=== PATIENT | male | born 1935 | race Caucasian/White ===

== ENCOUNTER → 2016-10-17 | Outpatient (CLI) | payer BC ==
[2016-10-17 10:48] LABS: BASO ABS # 0.05 K/uL (0-0.2); COMPLETE YES; EOS % 2.5 %; IG% 0.2 %; LYMPH % 34.6 %; LYMPH ABS # 1.79 K/uL (1.2-3.4); MEAN CELL VOLUME 90.7 fL (80-100); MEAN CORPUSCULAR HEMOGLOBIN 31.9 pg (25-34); MEAN CORPUSCULAR HGB CONC 35.1 g/dl (32-36); MEAN PLATELET VOLUME 11.7 fL (7.4-10.4); NEUT % 48.7 %; PLATELET COUNT 209 K/uL (130-400); RED BLOOD COUNT 4.96 M/uL (4.7-6.1); WHITE BLOOD COUNT 5.17 K/uL (4.8-10.8)
[2016-10-17 10:55] LABS: URINE APPEARANCE CLEAR (CLEAR); URINE BILIRUBIN NEG (NEG); URINE COLOR YELLOW; URINE EPITHELIAL CELL AUTO 0-5 /lpf (0-5); URINE NITRITE NEG (NEG); URINE SPECIFIC GRAVITY 1.009 (1.000-1.030); UROBILINOGEN NEG (NEG)
[2016-10-17 11:10] LABS: ESTIMATED AVERAGE GLUCOSE 120 mg/dl; HA1C FLAG Normal (Normal)
[2016-10-17 11:13] LABS: MANUAL MICROSCOPIC REQUIRED? NO; REVIEW REQ? NO
[2016-10-17 11:35] LABS: ALT/SGPT 32 U/L (12-78); AST/SGOT 22 U/L (15-37); BLOOD UREA NITROGEN 16 mg/dl (7-18); BUN/CREATININE RATIO 13.2 (10-20); CARBON DIOXIDE 30 mmol/L (21-32); CHLORIDE 96 mmol/L (98-107); CHOLESTEROL 154 mg/dl (0-200); CHOLESTEROL/HDL RATIO 2.3; GLUCOSE 111 mg/dl (70-99); HDL CHOLESTEROL 67 mg/dl; POTASSIUM 3.4 mmol/L (3.5-5.1); SODIUM 135 mmol/L (136-145)
[2016-10-17 11:46] LABS: LDL CHOLESTEROL CALCULATED 66 mg/dl; TRIGLYCERIDES 107 mg/dl (0-150); VERY LOW DENSITY LIPOPROT CALC 21 mg/dl
--- NOTE | 2016-10-24 07:13 | CODING QUERY MEDICAL NECESSITY ---
CQSUPPORTING DIAGNOSIS NEEDED A supporting diagnosis is required for the test/procedure performed on this patient in order for us to be reimbursed by the patient's insurance. Please provide a supporting diagnosis for the following test/procedure listed below next to the test name along with your signature. *If there is no additional diagnosis for this patient that would support the following test/procedure please document that below next to the test/procedure. Test(s)/Procedure(s) that require a supporting diagnosis: DOS 10/17/16 GLYCATED HEMOGLOBIN TEST Provider Signature: Date: Thank you [facility] Once completed, please kindly fax back to [phone] For questions please call [phone]
== END | disposition home or self-care (01) ==
LOC: C.LAB1850 09:33
PROVIDERS: ATTEND Internal Medicine
DX: E78.00 Pure hypercholesterolemia, unspecified (principal); R73.9 Hyperglycemia, unspecified

== ENCOUNTER → 2017-04-17 | Outpatient (CLI) | payer BC ==
[2017-04-17 09:48] LABS: BASO % 1.4 %; BASO ABS # 0.07 K/uL (0-0.2); COMPLETE YES; EOS % 3.1 %; HEMATOCRIT 46.1 % (42-52); LYMPH % 34.4 %; LYMPH ABS # 1.67 K/uL (1.2-3.4); MEAN CORPUSCULAR HEMOGLOBIN 31.1 pg (25-34); MEAN CORPUSCULAR HGB CONC 33.8 g/dl (32-36); MEAN PLATELET VOLUME 11.7 fL (7.4-10.4); MONO % 12.3 %; NEUT % 48.8 %; PLATELET COUNT 206 K/uL (130-400); RED BLOOD COUNT 5.01 M/uL (4.7-6.1); WHITE BLOOD COUNT 4.86 K/uL (4.8-10.8)
[2017-04-17 10:00] LABS: URINE APPEARANCE CLEAR (CLEAR); URINE BILIRUBIN NEG (NEG); URINE COLOR YELLOW; URINE EPITHELIAL CELL AUTO 0-5 /lpf (0-5); URINE NITRITE NEG (NEG); URINE PH 7.5 (4.5-7.5); URINE SPECIFIC GRAVITY 1.014 (1.000-1.030); UROBILINOGEN NEG (NEG)
[2017-04-17 10:06] LABS: MANUAL MICROSCOPIC REQUIRED? NO; REVIEW REQ? NO
[2017-04-17 10:10] LABS: ESTIMATED AVERAGE GLUCOSE 126 mg/dl; HA1C FLAG Normal (Normal)
[2017-04-17 11:16] LABS: ALT/SGPT 30 U/L (12-78); AST/SGOT 24 U/L (15-37); BLOOD UREA NITROGEN 20 mg/dl (7-18); BUN/CREATININE RATIO 18.1 (10-20); CALCIUM 9.1 mg/dl (8.5-10.1); CARBON DIOXIDE 31 mmol/L (21-32); CHLORIDE 97 mmol/L (98-107); CHOLESTEROL 150 mg/dl (0-200); GLUCOSE 116 mg/dl (70-99); POTASSIUM 3.5 mmol/L (3.5-5.1); SODIUM 133 mmol/L (136-145); TRIGLYCERIDES 144 mg/dl (0-150); VERY LOW DENSITY LIPOPROT CALC 29 mg/dl
[2017-04-17 11:26] LABS: CHOLESTEROL/HDL RATIO 2.6; HDL CHOLESTEROL 58 mg/dl; LDL CHOLESTEROL CALCULATED 63 mg/dl
--- NOTE | 2017-04-24 11:33 | CODING QUERY MEDICAL NECESSITY ---
SUPPORTING DIAGNOSIS NEEDED A supporting diagnosis is required for the test/procedure performed on this patient in order for us to be reimbursed by the patient's insurance. Please provide a supporting diagnosis for the following test/procedure listed below next to the test name along with your signature. *If there is no additional diagnosis for this patient that would support the following test/procedure please document that below next to the test/procedure. Test(s)/Procedure(s) that require a supporting diagnosis: * HEMOGLOBIN A1C DIAGNOSIS: Provider Signature: Date: Thank you Merly Guardado [employer] Once completed, please kindly fax back to [phone] For questions please call [phone]
== END | disposition home or self-care (01) ==
LOC: C.LAB1850 08:36
PROVIDERS: ATTEND Internal Medicine
DX: E78.00 Pure hypercholesterolemia, unspecified (principal); R73.9 Hyperglycemia, unspecified

== ENCOUNTER → 2017-05-11 | Outpatient (CLI) | payer BC ==
[~2017-05-11] MED LIST: GADAVIST IV PRN
--- NOTE | 2017-05-11 11:29 | DIAGNOSTIC IMAGING REPORT ---
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 COMPARISON STUDY: No previous studies for comparison. TECHNIQUE: Utilizing a 1.5 Mariam magnet and dedicated coil, multiplanar, multi echo imaging of the brain was performed pre and postcontrast administration with thin cut imaging through the internal auditory canals. Injection of 8.5 cc of Gadavist IV was uneventful. FINDINGS: There are no areas of restricted diffusion. A small focus of T2 shinethrough is noted within the posterior right frontal lobe on axial image 17. Brain volume is normal for age. Ventricular system is normal. Basilar cisterns are patent. There are no extra-axial collections. Flow-voids for the major intracranial vessels are present. There is no intracranial mass or pathologic enhancement. No abnormalities are identified within the internal auditory canals. There is no fluid within the mastoid air cells. No cerebellopontine angle mass is present. A 5 mm T2 hypertense focus within the posterior right frontal lobe could reflect small vessel disease or old lacunar infarct. A few small white matter T2 hypertense foci are noted. Calvarial signal is normal. Orbits and sinuses are unremarkable. IMPRESSION: 1. No acute intracranial findings. 2. No abnormalities within the internal auditory canals. 3. No intracranial mass or pathologic enhancement. Electronically signed by: Dante Denis M.D. 05/11/2017 11:28 AM Dictated Date/Time: 05/11/2017 11:18 AM
== END | disposition home or self-care (01) ==
LOC: C.MRIBC 10:01
PROVIDERS: ATTEND Physician Assistant
DX: H90.42 Sensorineural hearing loss, unilateral, left ear, with unrestricted hearing on the contralateral side (principal)

== ENCOUNTER → 2017-10-20 | Outpatient (CLI) | payer BC ==
[2017-10-20 14:36] LABS: INFLUENZA B ANTIGEN Neg for Influ B (NEG)
== END | disposition home or self-care (01) ==
LOC: C.LAB1850 11:10
PROVIDERS: ATTEND Internal Medicine
DX: R50.9 Fever, unspecified (principal)

== ENCOUNTER → 2017-10-30 | Outpatient (CLI) | payer BC ==
[2017-10-30 09:33] LABS: BASO % 0.9 %; BASO ABS # 0.05 K/uL (0-0.2); EOS % 2.8 %; EOS ABS # 0.15 K/uL (0-0.5); HEMATOCRIT 44.6 % (42-52); HEMOGLOBIN 15.8 g/dL (14.0-18.0); LYMPH % 33.6 %; LYMPH ABS # 1.82 K/uL (1.2-3.4); MEAN CELL VOLUME 90.1 fL (80-100); MEAN CORPUSCULAR HEMOGLOBIN 31.9 pg (25-34); MEAN CORPUSCULAR HGB CONC 35.4 g/dl (32-36); MEAN PLATELET VOLUME 10.6 fL (7.4-10.4); MONO % 10.3 %; MONO ABS # 0.56 K/uL (0.11-0.59); NEUT % 52.4 %; NEUT ABS # 2.84 K/uL (1.4-6.5); PLATELET COUNT 206 K/uL (130-400); RED CELL DISTRIBUTION WIDTH CV 13.8 % (11.5-14.5); RED CELL DISTRIBUTION WIDTH SD 45.3 fL (36.4-46.3); WHITE BLOOD COUNT 5.42 K/uL (4.8-10.8)
[2017-10-30 09:53] LABS: HEMOGLOBIN A1C 6.1 % (4.5-5.6)
[2017-10-30 10:00] LABS: ALT/SGPT 27 U/L (12-78); AST/SGOT 20 U/L (15-37); BLOOD UREA NITROGEN 24 mg/dl (7-18); CARBON DIOXIDE 30 mmol/L (21-32); CHOLESTEROL 153 mg/dl (0-200); GLUCOSE 114 mg/dl (70-99); POTASSIUM 3.8 mmol/L (3.5-5.1); SODIUM 129 mmol/L (136-145)
[2017-10-30 10:10] LABS: LDL CHOLESTEROL CALCULATED 69 mg/dl
== END | disposition home or self-care (01) ==
LOC: C.LAB1850 08:12
PROVIDERS: ATTEND Internal Medicine
DX: E78.00 Pure hypercholesterolemia, unspecified (principal)

== ENCOUNTER 2025-02-08 05:53 | Inpatient (IN) ==
[2025-02-08] MEDS: SODIUM CHLORIDE 0.9% 1,000 ML IV ONE (07:20)
[2025-02-08] MEDS: ONDANSETRON INJ 2 MG/ML 2 ML VIAL IV STA (07:20)
[2025-02-08] MEDS: ACETAMINOPHEN 1,000 MG/100 ML VIAL IV STA (07:20)
[2025-02-08] MEDS: KETOROLAC TROMETHAMINE 15 MG/ML VIAL IV ONE (07:21)
[2025-02-08 07:22] LABS: Hematocrit (blood only) 44.6 % (42.0-52.0); Hemoglobin 16.0 g/dl (14.0-18.0); Immature Granulocytes # (auto) 0.03 K/uL (0.01-0.20); Immature Granulocytes % (auto) 0.3 %; Mean Corpuscular Hemoglobin 31.3 pg (25.0-34.0); Mean Corpuscular Volume 87.3 fL (80.0-100.0); Platelet Count 185 K/uL (130-400); RDW Standard Deviation 44.4 fL (36.4-46.3); Red Blood Count 5.11 M/uL (4.70-6.10); White Blood Count 8.85 K/ul (4.8-10.8)
--- NOTE | 2025-02-08 07:35 | Emergency Department Note ---
Impression & Plan Diffuse abdominal pain, Acute urinary retention, Pancreatitis, Pancreas cyst, Acute hyponatremia, Hypokalemia ED Provider Note NAME: IRAM LEDEZMA AGE: 89 SEX: M : 1935 ARRIVES VIA: Walk-In INFORMANT: [Patient] ED PROVIDER(S): [Stevan Arora MD] CHIEF COMPLAINT: Back pain HISTORY OF PRESENT ILLNESS: Patient is an 89-year-old male who presents to the ER with abdominal pain and lower back pain. He feels bloated. His last bowel movement was 3 days ago. He had tried some Metamucil at home without relief. There has been no urinary complaint. He has noticed some nausea but he has not had vomiting. No fever, no cough or cold or congestion. PMHx/PSHx/Social Hx: See Below PHYSICAL EXAM: GENERAL: Patient is in no acute distress. HEENT: No acute trauma, normocephalic atraumatic, mucous membranes moist, no nasal congestion. NECK: No stridor, no adenopathy, no meningismus, trachea is midline. LUNGS: Clear to auscultation bilaterally, no wheeze, no rhonchi, breath sounds equal. HEART: Without murmurs gallops or rubs, regular rate and rhythm. ABDOMEN: Soft, nontender, no peritonitis. Mild distention noted. EXTREMITIES: No cyanosis, full range of motion of all the joints without pain or difficulty. Mild bilateral pedal edema. NEUROLOGIC: Oriented x 3, no acute motor or sensory deficits, no focal weakness. SKIN: No jaundice, no diaphoresis. DIFFERENTIAL DIAGNOSIS: Constipation, bowel obstruction, UTI, urinary retention, dehydration, among others. EMERGENCY DEPARTMENT PROCEDURES: MEDICAL DECISION MAKING: There is no leukocytosis or concerning anemia. There is a normal platelet count. No bandemia. Sodium is low, the value today is below his typical baseline. The patient had a hypokalemia on initial testing. There was no renal failure. No worrisome liver enzyme elevation. Lipase was slightly elevated consistent with potential early pancreatitis. Urinalysis showed ketones, no infection. Chest x-ray did not show pneumonia or CHF. ECG showed a sinus rhythm, there was no acute ischemia. Abdominal and pelvis CT showed an enlarged bladder as well as a pancreatic cyst and some pancreatic inflammation. There was no bowel obstruction, no diverticulitis. The bladder was quite enlarged. Lumbar spine CT did not show any fracture. The patient was unable to void a significant amount of urine at bedside. A bladder scan was done and he had 1300 cc, significant retention. A Patel catheter was placed with significant urine output. The patient felt improved. The patient received IV saline for hydration, 1.5 L. He was given IV potassium. He received IV Zofran. He was given IV Tylenol. He was given IV Toradol. The patient is feeling improved. I do think he is going to require a hospital stay for further workup and care. His electrolytes need addressed, a workup needs performed on the pancreatic cyst found, he would benefit from a urology consult given his urinary retention. I spoke with the patient and case management, the on-call hospitalist was consulted. Of note, the patient was found to be hypertensive, he had not taken his typical dose of the irbesartan. He did have this medication with him and he was instructed to take his typical oral dose while here in the ED. Prior/Outside records/notes reviewed: None ECG per my interpretation: Indication was abdominal pain. The ECG shows a sinus bradycardia with a rate of 58. There is LVH present. There is no acute ST elevation, no PVCs. There is some nonspecific ST change. QTc is 477. Continuous Cardiac Monitoring per my interpretation: An order was placed for continuous cardiac monitoring. The monitor shows a rate of 76 with normal sinus rhythm. Imaging/x-ray results per my interpretation: Chest x-ray shows some chronic changes, there was no pneumonia or CHF. Chronic Medical/Social conditions affecting care: Advanced age. Care/Management discussed with: Case management, the on-call hospitalist. 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, bilateral Macular degeneration Neck stiffness Lipoma Hyperglycemia (Chronic) Left asymmetrical SNHL Gait instability Health care maintenance Hyponatremia GERD (gastroesophageal reflux disease) Abnormal TSH Grieving SNHL (sensorineural hearing loss) Diverticulosis (Chronic) Enlarged prostate with lower urinary tract symptoms (LUTS) (Chronic) Hearing loss (Chronic) Hypercholesterolemia (Chronic) Hypertension (Chronic) Peripheral neuropathy (Chronic) Subjective tinnitus (Chronic) Medical History Blister of groin with infection GERD (gastroesophageal reflux disease) Subconjunctival hematoma right eye gets injections every 8 weeks Dysphagia History of colon cancer hx of 20 yrs ago > removed during colonoscopy Left SNHL Vertigo Epistaxis resolved Deviated septum no surgery Surgical History History of nasal cauterization H/O melanoma excision History of tonsillectomy and adenoidectomy History of eye surgery History of colonoscopy History of hemorrhoidectomy Family History Father Hearing loss Hypertension Heart disease Myocardial infarction Mother Cancer Sister COPD (chronic obstructive pulmonary disease) Other Melanoma Denies family history of Ovarian cancer Prostate cancer Breast cancer Colorectal cancer Social History Smoking Status: Former smoker Tobacco Type: Cigarettes Age Started Using Tobacco: 17; Age Quit Using Tobacco: 27; packs per day: 1; Second Hand Exposure: No; Do You Dip or Chew Tobacco: No; Hx Alcohol Use: No (no alcohol since January 11) Hx Substance Use: No Preferred Language: Armenian Communication Ability: Effective Visual Impairment: No Limitations Hearing Ability: Normal Tree Doctor Required: No Beliefs That Will Affect Care: None marital status: / Current Living Situation: Alone current occupational status: retired Feels Safe at Home: Yes Childhood Exposure to Second-Hand Smoke: Yes Diet: vegan and other Diet Comment: eats fish, cheese, eggs caffeine: Yes (1 tea 2 coffees daily) Dental Care, Regularly: Yes Physical Activity Frequency: Daily Seatbelt Use: always Sunscreen Use: Yes Do you think of yourself as: straight/heterosexual Gender Identity: Male Assistive Devices: Glasses Allergies Allergies Allergy/AdvReac Type Severity Reaction Status Date / Time No Known Drug Allergies Allergy Verified 01/17/25 10:17 Home Meds Home Medications Medication Instructions Recorded Confirmed loratadine 10 mg tablet 0 mg PO QAM 03/15/19 02/08/25 vitamins A,C,[id number] 4,296 0 cap PO BID 10/25/24 02/08/25 mcg-226 mg-90 mg capsule (PreserVision AREDS) Centrum Silver Men 1 tab PO DAILY 02/08/25 02/08/25 Osteo Bi-Flex 2 cap PO QAM 02/08/25 02/08/25 hydrochlorothiazide 12.5 mg capsule 0 mg PO QAM 02/08/25 02/08/25 irbesartan 300 mg tablet 0 mg PO QAM 02/08/25 02/08/25 mecobalamin (vitamin B12) 0 mg PO DAILY PRN Other 02/08/25 02/08/25 Previous Rx's Medication Instructions Recorded atorvastatin 20 mg tablet 20 mg PO HS #90 tabs 04/16/24 levothyroxine 50 mcg tablet 50 mcg PO DAILY #90 tabs 06/21/24 sildenafil (pulm.hypertension) 20 See Rx Instructions PO ONCE PRN 10/25/24 mg tablet sexual activity #30 tabs pantoprazole 20 mg tablet,delayed 20 mg PO QAM #90 tabs 12/24/24 release potassium chloride 10 mEq 10 meq PO DAILY #90 caps 12/24/24 capsule,extended release Results & Data (ED) Vital Signs Vital Signs - 24 hr 02/08/25 05:58 02/08/25 06:36 02/08/25 06:39 Temperature 37 C Temperature Source Oral Pulse Rate 80 64 Pulse Rate [Finger] 69 Pulse Rate from SpO2 Sensor 63 Respiratory Rate 18 13 Blood Pressure 156/75 H Blood Pressure [Right Arm] 173/115 H Blood Pressure Mean 102 Blood Pressure Mean [Right Arm] 134 Pulse Oximetry 97 97 96 Oxygen Delivery Method Room Air Room Air Sepsis Recent Fever Within 48 Hours No Sepsis New/Unexplained Change in Mental Status No Sepsis Action Taken by Nursing No Action Required 02/08/25 06:40 02/08/25 06:49 02/08/25 06:51 Temperature Temperature Source Pulse Rate 76 58 L Pulse Rate [Finger] Pulse Rate from SpO2 Sensor 47 L Respiratory Rate 17 Blood Pressure 116/61 Blood Pressure [Right Arm] Blood Pressure Mean 69 Blood Pressure Mean [Right Arm] Pulse Oximetry 94 Oxygen Delivery Method Sepsis Recent Fever Within 48 Hours Sepsis New/Unexplained Change in Mental Status Sepsis Action Taken by Nursing 02/08/25 06:57 02/08/25 07:00 02/08/25 07:02 Temperature Temperature Source Pulse Rate 60 Pulse Rate [Finger] Pulse Rate from SpO2 Sensor 60 Respiratory Rate 13 Blood Pressure 133/91 150/95 H Blood Pressure [Right Arm] Blood Pressure Mean 106 113 Blood Pressure Mean [Right Arm] Pulse Oximetry 93 Oxygen Delivery Method Sepsis Recent Fever Within 48 Hours Sepsis New/Unexplained Change in Mental Status Sepsis Action Taken by Nursing 02/08/25 07:44 02/08/25 08:14 02/08/25 08:17 Temperature Temperature Source Pulse Rate 56 L 61 Pulse Rate [Finger] Pulse Rate from SpO2 Sensor 57 L 62 Respiratory Rate 15 15 Blood Pressure 188/99 H Blood Pressure [Right Arm] Blood Pressure Mean 138 Blood Pressure Mean [Right Arm] Pulse Oximetry 100 97 Oxygen Delivery Method Sepsis Recent Fever Within 48 Hours Sepsis New/Unexplained Change in Mental Status Sepsis Action Taken by Nursing 02/08/25 08:59 02/08/25 09:01 02/08/25 09:02 Temperature Temperature Source Pulse Rate 60 61 Pulse Rate [Finger] Pulse Rate from SpO2 Sensor 52 L 60 Respiratory Rate 12 12 Blood Pressure 221/113 H Blood Pressure [Right Arm] Blood Pressure Mean 145 Blood Pressure Mean [Right Arm] Pulse Oximetry 99 99 Oxygen Delivery Method Sepsis Recent Fever Within 48 Hours Sepsis New/Unexplained Change in Mental Status Sepsis Action Taken by Nursing 02/08/25 09:29 02/08/25 09:31 02/08/25 09:38 Temperature Temperature Source Pulse Rate 57 L 55 L Pulse Rate [Finger] Pulse Rate from SpO2 Sensor 58 L 55 L Respiratory Rate 22 14 Blood Pressure 193/111 H Blood Pressure [Right Arm] Blood Pressure Mean 138 Blood Pressure Mean [Right Arm] Pulse Oximetry 99 96 Oxygen Delivery Method Sepsis Recent Fever Within 48 Hours Sepsis New/Unexplained Change in Mental Status Sepsis Action Taken by Nursing 02/08/25 09:53 02/08/25 10:00 02/08/25 10:08 Temperature Temperature Source Pulse Rate 56 L 60 Pulse Rate [Finger] Pulse Rate from SpO2 Sensor 56 L Respiratory Rate 14 12 Blood Pressure 178/110 H Blood Pressure [Right Arm] Blood Pressure Mean 144 Blood Pressure Mean [Right Arm] Pulse Oximetry 97 Oxygen Delivery Method Sepsis Recent Fever Within 48 Hours Sepsis New/Unexplained Change in Mental Status Sepsis Action Taken by Nursing 02/08/25 10:26 02/08/25 10:31 02/08/25 10:35 Temperature Temperature Source Pulse Rate 57 L 56 L Pulse Rate [Finger] Pulse Rate from SpO2 Sensor 57 L 56 L Respiratory Rate 15 13 Blood Pressure 181/106 H Blood Pressure [Right Arm] Blood Pressure Mean 117 Blood Pressure Mean [Right Arm] Pulse Oximetry 97 95 Oxygen Delivery Method Sepsis Recent Fever Within 48 Hours Sepsis New/Unexplained Change in Mental Status Sepsis Action Taken by Nursing 02/08/25 11:00 02/08/25 11:30 02/08/25 11:49 Temperature Temperature Source Pulse Rate 59 L 60 58 L Pulse Rate [Finger] Pulse Rate from SpO2 Sensor Respiratory Rate 14 14 Blood Pressure 157/103 H 157/104 H Blood Pressure [Right Arm] Blood Pressure Mean 111 120 Blood Pressure Mean [Right Arm] Pulse Oximetry 95 96 Oxygen Delivery Method Sepsis Recent Fever Within 48 Hours Sepsis New/Unexplained Change in Mental Status Sepsis Action Taken by Nursing 02/08/25 12:00 02/08/25 13:00 02/08/25 13:06 Temperature Temperature Source Pulse Rate 57 L 59 L 58 L Pulse Rate [Finger] Pulse Rate from SpO2 Sensor 59 L Respiratory Rate 12 14 14 Blood Pressure 199/105 H 166/90 H Blood Pressure [Right Arm] Blood Pressure Mean 119 149 Blood Pressure Mean [Right Arm] Pulse Oximetry 99 98 97 Oxygen Delivery Method Sepsis Recent Fever Within 48 Hours Sepsis New/Unexplained Change in Mental Status Sepsis Action Taken by Nursing 02/08/25 13:30 02/08/25 14:30 Temperature Temperature Source Pulse Rate 60 61 Pulse Rate [Finger] Pulse Rate from SpO2 Sensor Respiratory Rate 12 15 Blood Pressure 166/105 H 154/103 H Blood Pressure [Right Arm] Blood Pressure Mean 116 122 Blood Pressure Mean [Right Arm] Pulse Oximetry 97 95 Oxygen Delivery Method Sepsis Recent Fever Within 48 Hours Sepsis New/Unexplained Change in Mental Status Sepsis Action Taken by Group Home Medications Current Medication List: was personally reviewed by me Laboratory Data Attestation: I reviewed the patient's lab results. 02/08/25 12:52 02/08/25 12:52 Lab Results 02/08/25 02/08/25 02/08/25 Range/Units 06:34 06:59 12:52 WBC Cancelled 8.85 7.42 RBC Cancelled 5.11 4.93 Hgb Cancelled 16.0 15.3 Hct Cancelled 44.6 43.4 MCV Cancelled 87.3 88.0 MCH Cancelled 31.3 31.0 MCHC Cancelled 35.9 35.3 RDW Std Deviation Cancelled 44.4 45.4 RDW Coeff of Chris Cancelled 13.9 14.3 Plt Count Cancelled 185 158 MPV Cancelled 11.7 11.4 Immature Gran % (Auto) Cancelled 0.3 Neut % (Auto) Cancelled 76.7 Lymph % (Auto) Cancelled 10.3 Lee % (Auto) Cancelled 12.4 Eos % (Auto) Cancelled 0.1 Baso % (Auto) Cancelled 0.2 Neut # (Auto) Cancelled 6.78 H Lymph # (Auto) Cancelled 0.91 L Lee # (Auto) Cancelled 1.10 H Eos # (Auto) Cancelled 0.01 Baso # (Auto) Cancelled 0.02 Immature Gran # (Auto) Cancelled 0.03 Absolute Nucleated RBC Cancelled Nucleated RBC % (auto) Cancelled Neutrophils % (Manual) Cancelled Band Neutrophils % Cancelled Lymphocytes % (Manual) Cancelled Prolymphocyte % Cancelled Reactive Lymphs % (Man) Cancelled Monocytes % (Manual) Cancelled Eosinophils % (Manual) Cancelled Basophils % (Manual) Cancelled Metamyelocytes % (Man) Cancelled Myelocytes % (Man) Cancelled Promyelocytes % (Man) Cancelled Blast Cells % (Manual) Cancelled Plasma Cell % (Manual) Cancelled Other Cells % Cancelled Nucleated RBC % Cancelled Neutrophils # (Manual) Cancelled Band Neutrophils # Cancelled Total Absolute Neuts Cancelled Lymphocytes # (Manual) Cancelled Prolymphocyte # Cancelled Reactive Lymphs # Cancelled Total Abs Lymphocytes Cancelled Monocytes # (Manual) Cancelled Eosinophils # (Manual) Cancelled Basophils # (Manual) Cancelled Metamyelocytes # (Man) Cancelled Myelocytes # (Manual) Cancelled Promyelocytes # (Man) Cancelled Blast Cells # (Man) Cancelled Plasma Cell # (Manual) Cancelled Other Cells # Cancelled Nucleated RBCs # (Man) Cancelled Hypersegmented Neuts Cancelled Hyposegmented Neuts Cancelled Hypogranular Neuts Cancelled Large Granular Lymphs Cancelled # Lrg Granular Lymphs Cancelled Hairy Cells Cancelled Smudge Cells Cancelled Toxic Granulation Cancelled Toxic Vacuolation Cancelled Dohle Bodies Cancelled Lior Rods Cancelled Platelet Estimate Cancelled Hypogranular Platelets Cancelled Giant Platelets Cancelled Platelet Satelliting Cancelled RBC Morphology Cancelled Polychromasia Cancelled Hypochromasia Cancelled Poikilocytosis Cancelled Basophilic Stippling Cancelled Anisocytosis Cancelled Microcytosis Cancelled Macrocytosis Cancelled Spherocytes Cancelled Pappenheimer Bodies Cancelled Sickle Cells Cancelled Target Cells Cancelled Tear Drop Cells Cancelled Ovalocytes Cancelled Stomatocytes Cancelled Healy-Vandergrift Bodies Cancelled Echinocytes Cancelled Acanthocytes (Spur) Cancelled Rouleaux Cancelled RBC Agglutinates Cancelled Schistocytes Cancelled Sezary Cell Cancelled Sodium 126 L 126 L (136-145) mmol/L Potassium 3.2 L 4.1 D (3.5-5.1) mmol/L Chloride 90 L 91 L (98-107) mmol/L Carbon Dioxide 24 29 (21-32) mmol/L Anion Gap 12 H 6 (3-11) BUN 14 13 (6-23) mg/dl Creatinine 1.30 1.25 (0.6-1.4) mg/dl Est Cr Clr Drug Dosing 45.7 47.5 ml/min eGFR 52.84 55.39 BUN/Creatinine Ratio 10.8 10.4 (10-20) Glucose 134 H 111 H (70-99(Fasting)) mg/dl Calcium 9.4 9.0 (8.6-10.3) mg/dl Total Bilirubin 1.6 H (0.2-1.0) mg/dl AST 30 (13-39) U/L ALT 26 (7-52) U/L Alkaline Phosphatase 88 (34-104) U/L Total Protein 7.1 (6.0-8.3) gm/dl Albumin 4.4 (3.4-5.0) gm/dl Globulin 2.7 (2.5-4.0) gm/dl Albumin/Globulin Ratio 1.6 (0.9-2) Lipase 214 H (11-82) U/L Urine Color Yellow Urine Appearance Clear (Clear) Urine pH 7.5 (4.5-7.5) Ur Specific [place] 1.011 (1.000-1.030) Urine Protein 2+ H (Negative) Urine Glucose (UA) Negative (Negative) Urine Ketones Trace H (Negative) Urine Blood Negative (Negative) Urine Nitrite Negative (Negative) Urine Bilirubin Negative (Negative) Urine Urobilinogen Negative (Negative) Ur Leukocyte Esterase Negative (Negative) Urine WBC (Auto) 0-5 (0-5) /hpf Urine RBC (Auto) 0-2 (0-2) /hpf U Hyaline Cast (Auto) 0-2 (0-2) /lpf U Epithel Cells (Auto) 0-2 (0-2) /hpf Urine Bacteria (Auto) None Seen (None Seen) Urine Comment Blood Parasites ID Cancelled Administered Medications Discontinued Medications Acetaminophen (Ofirmev) 1,000 mg in 100 mls @ 400 mls/hr IV NOW STA Stop: 02/08/25 07:30 Last Infusion: 02/08/25 07:50 Dose: Infused Documented By: Admin: 02/08/25 07:20 Dose: 400 mls/hr Documented By: PORFIRIO Sodium Chloride (Nss) 1,000 mls @ 999 mls/hr IV .Q1H1M ONE Stop: 02/08/25 08:16 Last Infusion: 02/08/25 09:25 Dose: Infused Documented By: Admin: 02/08/25 07:20 Dose: 999 mls/hr Documented By: PORFIRIO Potassium Chloride (K Jhonny / Wtr) 10 meq in 100 mls @ 100 mls/hr IV ONE ONE Stop: 02/08/25 08:41 Last Infusion: 02/08/25 09:24 Dose: Infused Documented By: Admin: 02/08/25 07:50 Dose: 100 mls/hr Documented By: PORFIRIO Ioversol (Optiray 320 100ml) 94 ml IV ONCE ONE Stop: 02/08/25 08:06 Last Admin: 02/08/25 08:06 Dose: 94 ml Documented By: RACHEL Ketorolac Tromethamine (Ketorolac Tromethamine 15 Mg/Ml Vial) 10 mg IV NOW ONE Stop: 02/08/25 07:17 Last Admin: 02/08/25 07:21 Dose: 10 mg Documented By: PORFIRIO Lidocaine HCl (Lidocaine 2% Jelly 5 Ml Tube) 5 ml EXT NOW ONE Stop: 02/08/25 08:58 Last Admin: 02/08/25 09:24 Dose: 5 ml Documented By: PORFIRIO Ondansetron HCl (Ondansetron Inj 2 Mg/Ml 2 Ml Vial) 4 mg IV NOW STA Stop: 02/08/25 07:17 Last Admin: 02/08/25 07:20 Dose: 4 mg Documented By: TNK Imaging Data Radiologist's Impression: Chest X-Ray 02/08/25 06:23 EXAM: XR chest 1V portable CLINICAL HISTORY: abd pain TECHNIQUE: An X-ray image of the chest is obtained in 1 AP projection. COMPARISON: No prior studies are available for comparison. FINDINGS: Pulmonary Parenchyma: No evidence of consolidation, collapse, or focal opacities. No pulmonary nodules are identified. No evidence of pleural effusion or pleural thickening. Heart and Mediastinum: Heart size and shape are normal. No mediastinal widening or masses. No hilar or mediastinal lymphadenopathy. Bony Thorax: Bony thorax appears intact without fractures or deformities. Soft Tissues: Soft tissues overlying the chest wall are unremarkable. IMPRESSION: No acute cardiopulmonary abnormalities are identified. Electronically signed by Deshaun Kate 02-08-2025 08:04 AM Abdomen/Pelvis CT 02/08/25 07:16 CT SCAN OF THE ABDOMEN AND PELVIS WITH IV CONTRAST CLINICAL HISTORY: Abdominal pain, constipation and nausea. COMPARISON STUDY: None. TECHNIQUE: Following the IV administration of 94 cc of Optiray 320, CT scan of the abdomen and pelvis is performed from the lung bases to the proximal femora. Images are reviewed in the axial, sagittal, and coronal planes. IV contrast was administered without complication. A dose lowering technique was utilized adhering to the principles of ALARA. FINDINGS: Visualized portions of the lung bases are unremarkable. No pneumatosis, free air or portal venous gas is present. Subcentimeter lateral segment hepatic lesion is likely benign. There is no biliary or pancreatic ductal dilatation patient. Subcentimeter hypodense splenic lesion is likely benign. Note is made of a lobulated multicystic lesion within the pancreatic head which measures 10 x 8.8 x 7.1 cm. This contains numerous thin septations. A small amount of adjacent fluid is noted. This lesion causes severe narrowing of the proximal main portal vein. There is also mild narrowing of the superior mesenteric vein. The findings favor extrinsic compression although vascular invasion could appear similar. This lesion also abuts and displaces the inferior vena cava. A 4 mm left lower pole renal calculus is present. There are no ureteral calculi and there is no hydronephrosis. The prostate is enlarged, measuring 7.5 cm in transverse diameter. The bladder is moderately distended. Bladder wall thickening is likely chronic. Low-attenuation right renal lesions favor cysts. Note is made of a 3.9 cm cystic lesion along anterior aspect of the upper pole of the right kidney. In addition, there is a 1.5 cm lesion arising from the upper pole the right kidney on image 90 which measures above water attenuation. There is a 3.2 cm infrarenal abdominal aortic aneurysm. There is no evidence for a bowel obstruction. Note is made of colonic diverticulosis with evidence for acute diverticulitis. There is no lymphadenopathy. There are no fractures or suspicious lesions within visualized skeletal structures. The lumbar spine CT will be reported separately. IMPRESSION: 1. 10 x 8.8 x 7.1 cm lobulated multicystic lesion within the pancreatic head which contains numerous thin septations. A benign etiology such as serous cystadenoma is favored. Additional less likely differential considerations include mucinous cystic neoplasm of the pancreas and pancreatic pseudocyst. This results in compression/narrowing of several adjacent vessels, including severe narrowing of the main portal vein. Small amount of adjacent fluid could indicate superimposed pancreatitis or cyst rupture. GI consultation is recommended for consideration for EUS. 2. No bowel obstruction. No bowel wall thickening. Colonic diverticulosis without evidence for acute diverticulitis. 3. 1.5 cm right upper pole renal lesion which could represent a small solid renal lesion or proteinaceous cyst. Nonemergent renal protocol MRI is recommended. 3.9 cm cystic lesion adjacent to the upper pole of the right kidney. This is indeterminate although favors an exophytic renal cyst and can be assessed on MRI. 4. Enlarged prostate with distended bladder. Bladder wall thickening, likely chronic. 5. 3.2 cm infrarenal abdominal aortic aneurysm. 6. 4 mm left renal calculus. ACT 112: Negative or not required by law. Electronically signed by: Dante Denis M.D. 02/08/2025 8:[address] 02/08/25 07:[address] WITH CONTRAST CLINICAL HISTORY: Low back pain. COMPARISON STUDY: No previous studies for comparison. TECHNIQUE: Axial images of the lumbar spine were obtained following intravenous injection of 94 cc of Optiray 320 IV. Sagittal and coronal reformats were viewed. A dose lowering technique was utilized adhering to the principles of ALARA. FINDINGS: Please note that the abdomen and pelvis CT will be reported separately. For purposes of numbering on this exam, the L5-S1 disc space is assigned to axial image 396 of 508. There is mild leftward curvature of the lumbar spine. Vertebral body heights are maintained. There are no fractures. 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 There are no suspicious osseous lesions. A 4 cm lucent lesion with thickened trabecula within the L3 vertebral body represents a hemangioma. There is moderate to space narrowing with vacuum disc phenomenon at L5-S1. There is moderate multilevel facet arthrosis. The central canal and neural foramen are suboptimally assessed given CT technique. There is no evidence for severe central canal stenosis. Mild to moderate multilevel neural foraminal stenosis is present. IMPRESSION: 1. No lumbar spine fractures. 2. Moderate multilevel degenerative changes within the lumbar spine. No severe central canal and neural foraminal stenosis by CT. ACT 112: Negative or not required by law. Electronically signed by: Dante Denis M.D. 02/08/2025 8:41 AM Discharge Plan Visit Data Chief Complaint: Back Injury/Pain Stated Complaint: LOWER BACK PAIN,CONSTIPATED,ABD PAIN ED Provider: Stevan Arora Discharge Problem: Diffuse abdominal pain, Acute urinary retention, Pancreatitis, Pancreas cyst, Acute hyponatremia, Hypokalemia Patient Disposition: Admitted As Inpatient Condition: Fair Forms Stand Alone Forms: My Emergency [employer] Prescriptions Prescriptions: No Action atorvastatin 20 mg tablet 20 mg PO HS Qty: 90 3RF levothyroxine 50 mcg tablet 50 mcg PO DAILY Qty: 90 3RF potassium chloride 10 mEq capsule, extended release 10 meq PO DAILY Qty: 90 3RF pantoprazole 20 mg tablet,delayed release (DR/EC) 20 mg PO QAM Qty: 90 3RF loratadine 10 mg tablet 0 mg PO QAM Patient Comments: 02/08- otc unable to verify PreserVision AREDS 4,296 mcg-226 mg-90 mg capsule 0 cap PO BID Patient Comments: 02/08- otc unable to verify sildenafil (pulm.hypertension) 20 mg tablet See Rx Instructions PO ONCE PRN (Reason: sexual activity) Qty: 30 4RF Rx Instructions: Take 1-5 tabs PRN 1 hour prior to need. No more than 5 tabs in 24 hours. hydrochlorothiazide 12.5 mg capsule 0 mg PO QAM Patient Comments: 02/08- last filled 11/05/24 90 day supply irbesartan 300 mg tablet 0 mg PO QAM Patient Comments: 02/08-last filled 11/11/24 90 day supply #90 Centrum Silver Men 1 tab PO DAILY Patient Comments: 02/08- otc unable to verify Osteo Bi-Flex 2 cap PO QAM Patient Comments: 02/08- otc unable to verify. original: 2 caps po qam mecobalamin (vitamin B12) 0 mg PO DAILY PRN (Reason: Other) Patient Comments: 02/08- otc unable to verify Referrals Referrals: Spencer Escalera MD [Primary Care Provider] - Discharge Problem: Pancreatitis Qualifiers: Chronicity: acute Pancreatitis type: unspecified pancreatitis type Acute pancreatitis complication: unspecified Qualified Code(s): K85.90 - Acute pancreatitis without necrosis or infection, unspecified
[2025-02-08 07:39] LABS: Alanine Aminotransferase 26.0 U/L (7-52); Albumin Globulin Ratio 1.6 (0.9-2); Alkaline Phosphatase 88.0 U/L (34-104); Anion Gap 12.0 (3-11); Bilirubin,Total 1.6 mg/dl (0.2-1.0); Blood Urea Nitrogen 14.0 mg/dl (6-23); Calcium 9.4 mg/dl (8.6-10.3); Carbon Dioxide 24.0 mmol/L (21-32); Chloride 90.0 mmol/L (98-107); Creatinine Clr Calc Pharmacy 45.7 ml/min; Globulin 2.7 gm/dl (2.5-4.0); Glucose 134.0 mg/dl (70-99(Fasting)); Lipase 214.0 U/L (11-82); Potassium 3.2 mmol/L (3.5-5.1); Sodium 126.0 mmol/L (136-145); Total Protein 7.1 gm/dl (6.0-8.3)
[2025-02-08] MEDS: POTASSIUM CHLORIDE / WTR 10 MEQ/100 ML PLCT IV ONE (07:50)
[2025-02-08 07:54] LABS: Appearance Urine Clear (Clear); Bacteria Urine Automated None Seen (None Seen); Cast Urine Automated 0-2 /lpf (0-2); Epithelial Cell Urine Auto 0-2 /hpf (0-2); Glucose Urine UA Negative (Negative); RBC Urine Automated 0-2 /hpf (0-2); WBC Urine Automated 0-5 /hpf (0-5)
--- NOTE | 2025-02-08 08:04 | XRay Report ---
EXAM: XR chest 1V portable CLINICAL HISTORY: abd pain TECHNIQUE: An X-ray image of the chest is obtained in 1 AP projection. COMPARISON: No prior studies are available for comparison. FINDINGS: Pulmonary Parenchyma: No evidence of consolidation, collapse, or focal opacities. No pulmonary nodules are identified. No evidence of pleural effusion or pleural thickening. Heart and Mediastinum: Heart size and shape are normal. No mediastinal widening or masses. No hilar or mediastinal lymphadenopathy. Bony Thorax: Bony thorax appears intact without fractures or deformities. Soft Tissues: Soft tissues overlying the chest wall are unremarkable. IMPRESSION: No acute cardiopulmonary abnormalities are identified. Electronically signed by Deshaun Kate 02-08-2025 08:04 AM
[2025-02-08] MEDS: OPTIRAY 320 100ml IV ONE (08:06)
--- NOTE | 2025-02-08 08:37 | CT Scan Report ---
CT SCAN OF THE ABDOMEN AND PELVIS WITH IV CONTRAST CLINICAL HISTORY: Abdominal pain, constipation and nausea. COMPARISON STUDY: None. TECHNIQUE: Following the IV administration of 94 cc of Optiray 320, CT scan of the abdomen and pelvis is performed from the lung bases to the proximal femora. Images are reviewed in the axial, sagittal, and coronal planes. IV contrast was administered without complication. A dose lowering technique was utilized adhering to the principles of ALARA. FINDINGS: Visualized portions of the lung bases are unremarkable. No pneumatosis, free air or portal venous gas is present. Subcentimeter lateral segment hepatic lesion is likely benign. There is no south iary or pancreatic ductal dilatation patient. Subcentimeter hypodense splenic lesion is likely benign . Note is made of a lobulated multicystic lesion within the pancreatic head which measures 10 x 8.8 x 7.1 cm. This contains numerous thin septations. A small amount of adjacent fluid is noted. This lesi on causes severe narrowing of the proximal main portal vein. There is also mild narrowing of the supe rior mesenteric vein. The findings favor extrinsic compression although vascular invasion could appea r similar. This lesion also abuts and displaces the inferior vena cava. A 4 mm left lower pole renal calculus is present. There are no ureteral calculi and there is no hydronephrosis. The prostate is en larged, measuring 7.5 cm in transverse diameter. The bladder is moderately distended. Bladder wall th ickening is likely chronic. Low-attenuation right renal lesions favor cysts. Note is made of a 3.9 cm cystic lesion along anterior aspect of the upper pole of the right kidney. In addition, there is a 1 .5 cm lesion arising from the upper pole the right kidney on image 90 which measures above water atte nuation. There is a 3.2 cm infrarenal abdominal aortic aneurysm. There is no evidence for a bowel obs truction. Note is made of colonic diverticulosis with evidence for acute diverticulitis. There is no lymphadenopathy. There are no fractures or suspicious lesions within visualized skeletal structures. The lumbar spine CT will be reported separately. IMPRESSION: 1. 10 x 8.8 x 7.1 cm lobulated multicystic lesion within the pancreatic head which contains numerous thin septations. A benign etiology such as serous cystadenoma is favored. Additional less likely diff erential considerations include mucinous cystic neoplasm of the pancreas and pancreatic pseudocyst. T his results in compression/narrowing of several adjacent vessels, including severe narrowing of the m ain portal vein. Small amount of adjacent fluid could indicate superimposed pancreatitis or cyst rupt ure. GI consultation is recommended for consideration for EUS. 2. No bowel obstruction. No bowel wall thickening. Colonic diverticulosis without evidence for acute diverticulitis. 3. 1.5 cm right upper pole renal lesion which could represent a small solid renal lesion or proteinac eous cyst. Nonemergent renal protocol MRI is recommended. 3.9 cm cystic lesion adjacent to the upper pole of the right kidney. This is indeterminate although favors an exophytic renal cyst and can be as sessed on MRI. 4. Enlarged prostate with distended bladder. Bladder wall thickening, likely chronic. 5. 3.2 cm infrarenal abdominal aortic aneurysm. 6. 4 mm left renal calculus. ACT 112: Negative or not required by law. Electronically signed by: Dante Denis M.D. 02/08/2025 8:35 AM
--- NOTE | 2025-02-08 08:43 | CT Scan Report ---
LUMBAR SPINE CT WITH CONTRAST CLINICAL HISTORY: Low back pain. COMPARISON STUDY: No previous studies for comparison. TECHNIQUE: Axial images of the lumbar spine were obtained following intravenous injection of 94 cc of Optiray 320 IV. Sagittal and coronal reformats were viewed. A dose lowering technique was utilized a dhering to the principles of ALARA. FINDINGS: Please note that the abdomen and pelvis CT will be reported separately. For purposes of num bering on this exam, the L5-S1 disc space is assigned to axial image 396 of 508. There is mild leftwa rd curvature of the lumbar spine. Vertebral body heights are maintained. There are no fractures. 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 There are no suspicious osseous lesions. A 4 cm l ucent lesion with thickened trabecula within the L3 vertebral body represents a hemangioma. There is moderate to space narrowing with vacuum disc phenomenon at L5-S1. There is moderate multilevel facet arthrosis. The central canal and neural foramen are suboptimally assessed given CT technique. There i s no evidence for severe central canal stenosis. Mild to moderate multilevel neural foraminal stenosi s is present. IMPRESSION: 1. No lumbar spine fractures. 2. Moderate multilevel degenerative changes within the lumbar spine. No severe central canal and donte ral foraminal stenosis by CT. ACT 112: Negative or not required by law. Electronically signed by: Dante Denis M.D. 02/08/2025 8:41 AM
[2025-02-08] MEDS: LIDOCAINE 2% JELLY 5 ML TUBE EXT ONE (09:24)
--- NOTE | 2025-02-08 12:01 | History & Physical Report ---
Date of Service February 08, 2025 Assessment & Plan (1) Pancreatic lesion: Plan: -CT showing 10 x 8.8 x 7.1 cm lobulated multicystic lesion within the pancreatic head which contains numerous thin septations. -lipase 214 -GI consulted for possible EUS for further evaluation (2) Urinary retention due to benign prostatic hyperplasia: Plan: -Patel placed -improvement in symptoms -start flomax -Urology consulted (3) Hyponatremia: Plan: -NS IVF started -f/u BMP in am (4) Hypercholesterolemia: Plan: -con't zocor (5) Hypertension: Plan: -HCTZ -Irbesartan (6) Constipation: Plan: -mirlax -Milk of magnesia History of Present Illness Chief Complaint: abdominal pain and bloating Primary Care Provider: Spencer Escalera MD Pt is an 89 y/o male with pmh of HTN, HLD, who presents with 3 day of abdominal bloating and pain. Pt states his last BM was 3 days ago and he also has been having fullness in his bladder. In the ER his labs showed hyponatremia with Na+ 126, lipase 214, otherwise unremarkable. CT a/p shows multicystic lesion within the pancreatic head, enlarged prostate with distended bladder. Pt had Patel placed and felt relief in symptoms. Pt is being admitted for further evaluation of urinary retention and work up of pancreatic cyst. Allergies Allergy/AdvReac Type Severity Reaction Status Date / Time No Known Drug Allergies Allergy Verified 01/17/25 10:17 Home Medications Medication Instructions Recorded Confirmed Type loratadine 10 mg tablet 0 mg PO QAM 03/15/19 02/08/25 History atorvastatin 20 mg tablet 20 mg PO HS #90 tabs 04/16/24 02/08/25 Rx levothyroxine 50 mcg tablet 50 mcg PO DAILY #90 tabs 06/21/24 02/08/25 Rx sildenafil (pulm.hypertension) 20 See Rx Instructions PO ONCE PRN 10/25/24 02/08/25 Rx mg tablet sexual activity #30 tabs vitamins A,C,Z-epje-urcdms 4,296 0 cap PO BID 10/25/24 02/08/25 History mcg-226 mg-90 mg capsule (PreserVision AREDS) pantoprazole 20 mg tablet,delayed 20 mg PO QAM #90 tabs 12/24/24 02/08/25 Rx release potassium chloride 10 mEq 10 meq PO DAILY #90 caps 12/24/24 02/08/25 Rx capsule,extended release Centrum Silver Men 1 tab PO DAILY 02/08/25 02/08/25 History Osteo Bi-Flex 2 cap PO QAM 02/08/25 02/08/25 History hydrochlorothiazide 12.5 mg capsule 0 mg PO QAM 02/08/25 02/08/25 History irbesartan 300 mg tablet 0 mg PO QAM 02/08/25 02/08/25 History mecobalamin (vitamin B12) 0 mg PO DAILY PRN Other 02/08/25 02/08/25 History Past Med/Surg History Problem List (Updated 02/08/25 @ 11:58 by Wm Martin MD) Constipation Urinary retention due to benign prostatic hyperplasia Pancreatic lesion 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, bilateral Macular degeneration Neck stiffness Lipoma Hyperglycemia (Chronic) Left asymmetrical SNHL Gait instability Health care maintenance Hyponatremia GERD (gastroesophageal reflux disease) Abnormal TSH Grieving SNHL (sensorineural hearing loss) Diverticulosis (Chronic) Enlarged prostate with lower urinary tract symptoms (LUTS) (Chronic) Hearing loss (Chronic) Hypercholesterolemia (Chronic) Hypertension (Chronic) Peripheral neuropathy (Chronic) Subjective tinnitus (Chronic) Medical History Blister of groin with infection GERD (gastroesophageal reflux disease) Subconjunctival hematoma Dysphagia History of colon cancer Left SNHL Vertigo Epistaxis Deviated septum Surgical History History of nasal cauterization H/O melanoma excision History of tonsillectomy and adenoidectomy History of eye surgery History of colonoscopy History of hemorrhoidectomy Family History Father Hearing loss Hypertension Heart disease Myocardial infarction Mother Cancer Sister COPD (chronic obstructive pulmonary disease) Other Melanoma Denies family history of Ovarian cancer Prostate cancer Breast cancer Colorectal cancer Social History Smoking Status: Former smoker Tobacco Type: Cigarettes Age Started Using Tobacco: 17; Age Quit Using Tobacco: 27; packs per day: 1; Second Hand Exposure: No; Do You Dip or Chew Tobacco: No; Hx Alcohol Use: No (no alcohol since January 11) Hx Substance Use: No Preferred Language: Thai Communication Ability: Effective Visual Impairment: No Limitations Hearing Ability: Normal 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 HENT: Negative for neck pain/stiffness, headache, congestion, sore throat, swelling. EYES: Negative for discharge/pain or vision changes. RESP: Negative for cough/hemoptysis and shortness of breath. CV: Negative chest pain, difficulty breathing, palpitations. ABD: Negative pain, nausea, vomiting. : Negative increase frequency, dysuria, blood in urine or stool. MUSC: Negative for muscle aches, edema. SKIN: Negative rash, lesions/sores. NEURO: Negative headache, dizziness, weakness. Physical Exam Physical Exam: GENERAL APPEARANCE NAD, activity normal for age, well developed/ well nourished, no cyanosis, pallor, or diaphoresis. EYES lids/conjunctiva normal. EARS/NOSE/THROAT Mucous membranes moist, nares normal, lips/teeth normal uvula midline without oral pharyngeal erythema, exudate or swelling TMs normal bilaterally. No lymphangitis/lymphedema. HEAD/NECK normocephalic atraumatic, no facial trauma, neck is supple. RESPIRATORY respiratory effort normal, speaks in full sentences, no tripod position, no accessory muscle use. Lungs clear to auscultation without rhonchi, wheezes, rales CARDIAC Regular rate and rhythm, no edema. ABDOMINAL Soft, ND/NT. No evidence of fluid wave. No pulsatile masses on exam, rebound tenderness, Albright sign or pain over Mcburney's point. MUSCLES/EXTREMITIES No abnormal range of motion, no swelling. SKIN Warm, pink and dry. No rashes, dermatoses, petechiae or lesions. NEUROLOGICAL Speech is clear and appropriate. Normal level of consciousness. Gait and coordination are normal. 5/5 strength in all extremities. PSYCH Normal mood and affect. Judgement/competence is appropriate Results & Data Results & Data Vital Signs (Past 12 Hours) Vital Signs Temp Pulse Pulse Resp BP BP Pulse Ox 02/08/25 11:30 60 14 157/104 H 96 02/08/25 11:00 59 L 14 157/103 H 95 02/08/25 10:35 56 L 13 95 02/08/25 10:31 181/106 H 02/08/25 10:26 57 L 15 97 02/08/25 10:08 60 12 02/08/25 10:00 178/110 H 02/08/25 09:53 56 L 14 97 02/08/25 09:38 55 L 14 96 02/08/25 09:31 193/111 H 02/08/25 09:29 57 L 22 99 02/08/25 09:02 61 12 99 02/08/25 09:01 221/113 H 02/08/25 08:59 60 12 99 02/08/25 08:17 188/99 H 02/08/25 08:14 61 15 97 02/08/25 07:44 56 L 15 100 02/08/25 07:02 60 13 93 02/08/25 07:00 150/95 H 02/08/25 06:57 133/91 02/08/25 06:51 58 L 17 94 02/08/25 06:49 116/61 02/08/25 06:40 76 02/08/25 06:39 64 13 96 02/08/25 06:36 69 18 173/115 H 97 02/08/25 05:58 37 C 80 156/75 H 97 O2 Del Method 02/08/25 11:30 02/08/25 11:00 02/08/25 10:35 02/08/25 10:31 02/08/25 10:26 02/08/25 10:08 02/08/25 10:00 02/08/25 09:53 02/08/25 09:38 02/08/25 09:31 02/08/25 09:29 02/08/25 09:02 02/08/25 09:01 02/08/25 08:59 02/08/25 08:17 02/08/25 08:14 02/08/25 07:44 02/08/25 07:02 02/08/25 07:00 02/08/25 06:57 02/08/25 06:51 02/08/25 06:49 02/08/25 06:40 02/08/25 06:39 02/08/25 06:36 Room Air 02/08/25 05:58 Room Air PG Care Time/CCT Total # of Minutes Spent Total Time Spent with Patient: Total time spent is greater than 50% in coordination of care (as documented) at patient's floor/unit and/or counseling patient: Coding Level of Care Code 09548 INT INP/OBS CARE MIN Diagnoses Pancreatic lesion K86.9 Urinary retention due to benign prostatic hyperplasia N40.1; R33.8 Hyponatremia E87.1 Hypercholesterolemia E78.00 Hypertension I10 Constipation K59.00
[2025-02-08 13:07] LABS: Hematocrit (blood only) 43.4 % (42.0-52.0); Hemoglobin 15.3 g/dl (14.0-18.0); Mean Corpuscular Hemoglobin 31.0 pg (25.0-34.0); Mean Corpuscular Volume 88.0 fL (80.0-100.0); Platelet Count 158 K/uL (130-400); RDW Standard Deviation 45.4 fL (36.4-46.3); Red Blood Count 4.93 M/uL (4.70-6.10); White Blood Count 7.42 K/ul (4.8-10.8)
[2025-02-08 13:26] LABS: Anion Gap 6.0 (3-11); Blood Urea Nitrogen 13.0 mg/dl (6-23); Calcium 9.0 mg/dl (8.6-10.3); Carbon Dioxide 29.0 mmol/L (21-32); Chloride 91.0 mmol/L (98-107); Creatinine Clr Calc Pharmacy 47.5 ml/min; Glucose 111.0 mg/dl (70-99(Fasting)); Potassium 4.1 mmol/L (3.5-5.1); Sodium 126.0 mmol/L (136-145)
[2025-02-08] MEDS: SODIUM CHLORIDE 0.9% 500 ML IV SCH (15:29)
[2025-02-08] MEDS: POLYETHYLENE (MIRALAX) 17 GM PACK PO PRN (17:05)
[2025-02-08] MEDS: KETOROLAC TROMETHAMINE 15 MG/ML VIAL IV PRN (19:28)
[2025-02-08] MEDS: TAMSULOSIN HCL 0.4 MG CAP PO SCH (20:29)
[2025-02-08] MEDS: ATORVASTATIN 20 MG TAB PO SCH (20:29)
[2025-02-09] MEDS: ONDANSETRON INJ 2 MG/ML 2 ML VIAL IV PRN (04:17)
[2025-02-09] MEDS: ACETAMINOPHEN 325 MG TAB PO PRN (05:51)
[2025-02-09 07:22] VITALS: RESP 18
[2025-02-09 07:28] LABS: Hematocrit (blood only) 43.1 % (42.0-52.0); Hemoglobin 15.1 g/dl (14.0-18.0); Mean Corpuscular Hemoglobin 31.3 pg (25.0-34.0); Mean Corpuscular Volume 89.4 fL (80.0-100.0); Platelet Count 158 K/uL (130-400); RDW Standard Deviation 46.6 fL (36.4-46.3); Red Blood Count 4.82 M/uL (4.70-6.10); White Blood Count 8.15 K/ul (4.8-10.8)
[2025-02-09 07:52] LABS: Anion Gap 10.0 (3-11); Blood Urea Nitrogen 26.0 mg/dl (6-23); Calcium 8.8 mg/dl (8.6-10.3); Carbon Dioxide 23.0 mmol/L (21-32); Chloride 93.0 mmol/L (98-107); Creatinine Clr Calc Pharmacy 37.6 ml/min; Glucose 97.0 mg/dl (70-99(Fasting)); Potassium 3.6 mmol/L (3.5-5.1); Sodium 126.0 mmol/L (136-145)
[2025-02-09] MEDS: LEVOTHYROXINE SODIUM 50 MCG TABLET PO SCH (08:13)
[2025-02-09] MEDS: MAGNESIUM HYDROXIDE SUSP 30 ML UDC PO PRN (08:22)
--- NOTE | 2025-02-09 08:55 | Urology Consultation ---
Date of Consultation February 09, 2025 Assessment & Plan (1) Urinary retention due to benign prostatic hyperplasia: Plan 89-year-old male who was admitted on 02/08/2025 with 3 days of abdominal bloating and pain. CT scan showed a fairly large prostate and a distended bladder. Urology consult was placed for urinary retention. Recommend maintaining catheter. Likely will be discharged home with catheter and can do an outpatient void trial Recommend initiating Flomax 0.4 mg daily as well as finasteride 5 mg daily. Patient can be transition to dutasteride as an outpatient as we do not have this in the inpatient setting Urology to follow peripherally. Depending on how long patient is in hospital, can consider inpatient void trial versus outpatient voiding trial. All of this was discussed with patient and he was in agreement. Discussed that he has a very large prostate and if he is unable to void with medications may require procedure in the future. History of Present Illness Attending Physician: Wm Martin MD History of Present Illness 89-year-old male who was admitted on 02/08/2025 with 3 days of abdominal bloating and pain. Labs showed a white blood cell count of 7.4, hemoglobin of 15.3 and creatinine of 1.25. Baseline appears to be 1.2-1.5. CT scan was performed which showed a pancreatic lesion as well as a 1.5 cm right upper pole lesion that could either be a solid mass or proteinaceous cyst. He also had a significantly enlarged prostate with a distended bladder and a 4 mm nonobstructing left renal calculus. A Patel catheter was placed. Urology was consulted for urinary retention. Does not appear patient was previously on any medications to help with urination. Patient was previously a patient of Dr. Le and most recently saw Tamy Chaves in clinic. He had previously been on dutasteride but stopped several years ago. Allergies Allergy/AdvReac Type Severity Reaction Status Date / Time No Known Drug Allergies Allergy Verified 01/17/25 10:17 Home Medications Medication Instructions Recorded Confirmed Type loratadine 10 mg tablet 0 mg PO QAM 03/15/19 02/08/25 History atorvastatin 20 mg tablet 20 mg PO HS #90 tabs 04/16/24 02/08/25 Rx levothyroxine 50 mcg tablet 50 mcg PO DAILY #90 tabs 06/21/24 02/08/25 Rx sildenafil (pulm.hypertension) 20 See Rx Instructions PO ONCE PRN 10/25/24 02/08/25 Rx mg tablet sexual activity #30 tabs vitamins A,C,C-mjzb-veionz 4,296 0 cap PO BID 10/25/24 02/08/25 History mcg-226 mg-90 mg capsule (PreserVision AREDS) pantoprazole 20 mg tablet,delayed 20 mg PO QAM #90 tabs 12/24/24 02/08/25 Rx release potassium chloride 10 mEq 10 meq PO DAILY #90 caps 12/24/24 02/08/25 Rx capsule,extended release Centrum Silver Men 1 tab PO DAILY 02/08/25 02/08/25 History Osteo Bi-Flex 2 cap PO QAM 02/08/25 02/08/25 History hydrochlorothiazide 12.5 mg capsule 0 mg PO QAM 02/08/25 02/08/25 History irbesartan 300 mg tablet 0 mg PO QAM 02/08/25 02/08/25 History mecobalamin (vitamin B12) 0 mg PO DAILY PRN Other 02/08/25 02/08/25 History Patient History Medical History Blister of groin with infection GERD (gastroesophageal reflux disease) Subconjunctival hematoma right eye gets injections every 8 weeks Dysphagia History of colon cancer hx of 20 yrs ago > removed during colonoscopy Left SNHL Vertigo Epistaxis resolved Deviated septum no surgery Surgical History History of nasal cauterization H/O melanoma excision History of tonsillectomy and adenoidectomy History of eye surgery History of colonoscopy History of hemorrhoidectomy Family History Father Hearing loss Hypertension Heart disease Myocardial infarction Mother Cancer Sister COPD (chronic obstructive pulmonary disease) Other Melanoma Denies family history of Ovarian cancer Prostate cancer Breast cancer Colorectal cancer Social History Smoking Status: Former smoker Tobacco Type: Cigarettes Age Started Using Tobacco: 17; Age Quit Using Tobacco: 27; packs per day: 1; Second Hand Exposure: No; Do You Dip or Chew Tobacco: No; Hx Alcohol Use: Yes Alcohol type: wine Hx Substance Use: No Preferred Language: Faroese Communication Ability: Effective Visual Impairment: No Limitations Hearing Ability: Normal Hearing Therapy Teacher Required: No Beliefs That Will Affect Care: None marital status: / Current Living Situation: Alone current occupational status: retired Feels Safe at Home: Yes Childhood Exposure to Second-Hand Smoke: Yes Diet: vegan and other Diet Comment: eats fish, cheese, eggs caffeine: Yes (1 tea 2 coffees daily) Dental Care, Regularly: Yes Physical Activity Frequency: Daily Seatbelt Use: always Sunscreen Use: Yes Do you think of yourself as: straight/heterosexual Gender Identity: Male Assistive Devices: Glasses Physical Exam Physical Exam: General: Alert and oriented, no acute distress HEENT: Normocephalic, mucous membranes moist Pulmonary: Nonlabored respirations Abdomen: Nondistended : Patel catheter draining pink-tinged urine. Extremities: Moves all 4 spontaneously Neuro: No gross deficits Skin: Warm, dry, no rashes noted Results & Data Vital Signs (Past 12 Hours) Vital Signs Temp Pulse Resp BP Pulse Ox O2 Del Method 02/09/25 08:49 107/70 02/09/25 07:22 36.7 C 77 18 126/87 94 Room Air PG Care Time/CCT Total # of Minutes Spent Total Time Spent with Patient: Total time spent is greater than 50% in coordination of care (as documented) at patient's floor/unit and/or counseling patient: Coding Level of Care Code 31050 INT INP/OBS CARE 2/55MIN Diagnoses Urinary retention due to benign prostatic hyperplasia N40.1; R33.8
--- NOTE | 2025-02-09 09:12 | Gastrointestinal Consultation ---
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 Not classic for serous cystadenoma which is actually more common in women than men. This could be a large septated mucinous cystadenoma less likely a pseudocyst with lack of history of pancreatitis. Cystic carcinomas are rare but also need to be included in the differential. I do believe he would benefit from an EUS with fluid analysis. This will need to be done at a tertiary care center as we do not offer that procedure here. History of Present Illness Reason for Consultation: Pancreatic cyst Attending Physician: Wm Martin MD History of Present Illness Patient was well until approximately 3 days ago developed onset of abdominal distention, fullness and pain. Over the last several months he has noted some occasional intermittent transient upper abdominal pain which resolved spontaneously. He has also noted some recent onset of constipation. History of colon cancer in the past treated. CT scan on admission shows a large septated pancreatic cyst in the head of the pancreas. No prior history of pancreatitis or significant alcohol use. Allergies Allergy/AdvReac Type Severity Reaction Status Date / Time No Known Drug Allergies Allergy Verified 01/17/25 10:17 Home Medications Medication Instructions Recorded Confirmed Type loratadine 10 mg tablet 0 mg PO QAM 03/15/19 02/08/25 History atorvastatin 20 mg tablet 20 mg PO HS #90 tabs 04/16/24 02/08/25 Rx levothyroxine 50 mcg tablet 50 mcg PO DAILY #90 tabs 06/21/24 02/08/25 Rx sildenafil (pulm.hypertension) 20 See Rx Instructions PO ONCE PRN 10/25/24 02/08/25 Rx mg tablet sexual activity #30 tabs vitamins A,C,B-nors-okhlcp 4,296 0 cap PO BID 10/25/24 02/08/25 History mcg-226 mg-90 mg capsule (PreserVision AREDS) pantoprazole 20 mg tablet,delayed 20 mg PO QAM #90 tabs 12/24/24 02/08/25 Rx release potassium chloride 10 mEq 10 meq PO DAILY #90 caps 12/24/24 02/08/25 Rx capsule,extended release Centrum Silver Men 1 tab PO DAILY 02/08/25 02/08/25 History Osteo Bi-Flex 2 cap PO QAM 02/08/25 02/08/25 History hydrochlorothiazide 12.5 mg capsule 0 mg PO QAM 02/08/25 02/08/25 History irbesartan 300 mg tablet 0 mg PO QAM 02/08/25 02/08/25 History mecobalamin (vitamin B12) 0 mg PO DAILY PRN Other 02/08/25 02/08/25 History Patient History Medical History Blister of groin with infection GERD (gastroesophageal reflux disease) Subconjunctival hematoma right eye gets injections every 8 weeks Dysphagia History of colon cancer hx of 20 yrs ago > removed during colonoscopy Left SNHL Vertigo Epistaxis resolved Deviated septum no surgery Surgical History History of nasal cauterization H/O melanoma excision History of tonsillectomy and adenoidectomy History of eye surgery History of colonoscopy History of hemorrhoidectomy Family History Father Hearing loss Hypertension Heart disease Myocardial infarction Mother Cancer Sister COPD (chronic obstructive pulmonary disease) Other Melanoma Denies family history of Ovarian cancer Prostate cancer Breast cancer Colorectal cancer Social History Smoking Status: Former smoker Tobacco Type: Cigarettes Age Started Using Tobacco: 17; Age Quit Using Tobacco: 27; packs per day: 1; Second Hand Exposure: No; Do You Dip or Chew Tobacco: No; Hx Alcohol Use: Yes Alcohol type: wine Hx Substance Use: No Preferred Language: Sammarinese Communication Ability: Effective Visual Impairment: No Limitations Hearing Ability: Normal Keno Manager Required: No Beliefs That Will Affect Care: None marital status: / Current Living Situation: Alone current occupational status: retired Feels Safe at Home: Yes Childhood Exposure to Second-Hand Smoke: Yes Diet: vegan and other Diet Comment: eats fish, cheese, eggs caffeine: Yes (1 tea 2 coffees daily) Dental Care, Regularly: Yes Physical Activity Frequency: Daily Seatbelt Use: always Sunscreen Use: Yes Do you think of yourself as: straight/heterosexual Gender Identity: Male Assistive Devices: Glasses Review of Systems Review of Systems: No fever No chills No SOB No CP Abdominal pain Physical Exam Physical Exam: Eyes; anicteric HENT No masses Chest clear to A Cor S1, S2 physiologic Abd: softer distended mild tenderness and fullness in the epigastrium Ext no edema Results & Data Vital Signs (Past 12 Hours) Vital Signs Temp Pulse Resp BP Pulse Ox O2 Del Method 02/09/25 08:49 107/70 02/09/25 07:22 36.7 C 77 18 126/87 94 Room Air Laboratory Results Laboratory Results - last 48 hr 02/08/25 02/08/25 02/08/25 06:34 06:59 12:52 WBC Cancelled 8.85 7.42 RBC Cancelled 5.11 4.93 Hgb Cancelled 16.0 15.3 Hct Cancelled 44.6 43.4 MCV Cancelled 87.3 88.0 MCH Cancelled 31.3 31.0 MCHC Cancelled 35.9 35.3 RDW Std Deviation Cancelled 44.4 45.4 RDW Coeff of Chris Cancelled 13.9 14.3 Plt Count Cancelled 185 158 MPV Cancelled 11.7 11.4 Immature Gran % (Auto) Cancelled 0.3 Neut % (Auto) Cancelled 76.7 Lymph % (Auto) Cancelled 10.3 Hale % (Auto) Cancelled 12.4 Eos % (Auto) Cancelled 0.1 Baso % (Auto) Cancelled 0.2 Neut # (Auto) Cancelled 6.78 H Lymph # (Auto) Cancelled 0.91 L Hale # (Auto) Cancelled 1.10 H Eos # (Auto) Cancelled 0.01 Baso # (Auto) Cancelled 0.02 Immature Gran # (Auto) Cancelled 0.03 Absolute Nucleated RBC Cancelled Nucleated RBC % (auto) Cancelled Neutrophils % (Manual) Cancelled Band Neutrophils % Cancelled Lymphocytes % (Manual) Cancelled Prolymphocyte % Cancelled Reactive Lymphs % (Man) Cancelled Monocytes % (Manual) Cancelled Eosinophils % (Manual) Cancelled Basophils % (Manual) Cancelled Metamyelocytes % (Man) Cancelled Myelocytes % (Man) Cancelled Promyelocytes % (Man) Cancelled Blast Cells % (Manual) Cancelled Plasma Cell % (Manual) Cancelled Other Cells % Cancelled Nucleated RBC % Cancelled Neutrophils # (Manual) Cancelled Band Neutrophils # Cancelled Total Absolute Neuts Cancelled Lymphocytes # (Manual) Cancelled Prolymphocyte # Cancelled Reactive Lymphs # Cancelled Total Abs Lymphocytes Cancelled Monocytes # (Manual) Cancelled Eosinophils # (Manual) Cancelled Basophils # (Manual) Cancelled Metamyelocytes # (Man) Cancelled Myelocytes # (Manual) Cancelled Promyelocytes # (Man) Cancelled Blast Cells # (Man) Cancelled Plasma Cell # (Manual) Cancelled Other Cells # Cancelled Nucleated RBCs # (Man) Cancelled Hypersegmented Neuts Cancelled Hyposegmented Neuts Cancelled Hypogranular Neuts Cancelled Large Granular Lymphs Cancelled # Lrg Granular Lymphs Cancelled Hairy Cells Cancelled Smudge Cells Cancelled Toxic Granulation Cancelled Toxic Vacuolation Cancelled Dohle Bodies Cancelled Lior Rods Cancelled Platelet Estimate Cancelled Hypogranular Platelets Cancelled Giant Platelets Cancelled Platelet Satelliting Cancelled RBC Morphology Cancelled Polychromasia Cancelled Hypochromasia Cancelled Poikilocytosis Cancelled Basophilic Stippling Cancelled Anisocytosis Cancelled Microcytosis Cancelled Macrocytosis Cancelled Spherocytes Cancelled Pappenheimer Bodies Cancelled Sickle Cells Cancelled Target Cells Cancelled Tear Drop Cells Cancelled Ovalocytes Cancelled Stomatocytes Cancelled Healy-Bellemeade Bodies Cancelled Echinocytes Cancelled Acanthocytes (Spur) Cancelled Rouleaux Cancelled RBC Agglutinates Cancelled Schistocytes Cancelled Sezary Cell Cancelled Sodium 126 L 126 L Potassium 3.2 L 4.1 D Chloride 90 L 91 L Carbon Dioxide 24 29 Anion Gap 12 H 6 BUN 14 13 Creatinine 1.30 1.25 Est Cr Clr Drug Dosing 45.7 47.5 eGFR 52.84 55.39 BUN/Creatinine Ratio 10.8 10.4 Glucose 134 H 111 H Osmolality Calcium 9.4 9.0 Total Bilirubin 1.6 H AST 30 ALT 26 Alkaline Phosphatase 88 Total Protein 7.1 Albumin 4.4 Globulin 2.7 Albumin/Globulin Ratio 1.6 Lipase 214 H Urine Color Yellow Urine Appearance Clear Urine pH 7.5 Ur Specific Gleason 1.011 Urine Protein 2+ H Urine Glucose (UA) Negative Urine Ketones Trace H Urine Blood Negative Urine Nitrite Negative Urine Bilirubin Negative Urine Urobilinogen Negative Ur Leukocyte Esterase Negative Urine WBC (Auto) 0-5 Urine RBC (Auto) 0-2 U Hyaline Cast (Auto) 0-2 U Epithel Cells (Auto) 0-2 Urine Bacteria (Auto) None Seen Urine Osmolality Ur Random Sodium Urine Comment Blood Parasites ID Cancelled 02/09/25 02/09/25 02/09/25 06:46 06:53 08:25 WBC 8.15 RBC 4.82 Hgb 15.1 Hct 43.1 MCV 89.4 MCH 31.3 MCHC 35.0 RDW Std Deviation 46.6 H RDW Coeff of Chris 14.5 Plt Count 158 MPV 12.3 Immature Gran % (Auto) Neut % (Auto) Lymph % (Auto) Hale % (Auto) Eos % (Auto) Baso % (Auto) Neut # (Auto) Lymph # (Auto) Hale # (Auto) Eos # (Auto) Baso # (Auto) Immature Gran # (Auto) Absolute Nucleated RBC Nucleated RBC % (auto) Neutrophils % (Manual) Band Neutrophils % Lymphocytes % (Manual) Prolymphocyte % Reactive Lymphs % (Man) Monocytes % (Manual) Eosinophils % (Manual) Basophils % (Manual) Metamyelocytes % (Man) Myelocytes % (Man) Promyelocytes % (Man) Blast Cells % (Manual) Plasma Cell % (Manual) Other Cells % Nucleated RBC % Neutrophils # (Manual) Band Neutrophils # Total Absolute Neuts Lymphocytes # (Manual) Prolymphocyte # Reactive Lymphs # Total Abs Lymphocytes Monocytes # (Manual) Eosinophils # (Manual) Basophils # (Manual) Metamyelocytes # (Man) Myelocytes # (Manual) Promyelocytes # (Man) Blast Cells # (Man) Plasma Cell # (Manual) Other Cells # Nucleated RBCs # (Man) Hypersegmented Neuts Hyposegmented Neuts Hypogranular Neuts Large Granular Lymphs # Lrg Granular Lymphs Hairy Cells Smudge Cells Toxic Granulation Toxic Vacuolation Dohle Bodies Lior Rods Platelet Estimate Hypogranular Platelets Giant Platelets Platelet Satelliting RBC Morphology Polychromasia Hypochromasia Poikilocytosis Basophilic Stippling Anisocytosis Microcytosis Macrocytosis Spherocytes Pappenheimer Bodies Sickle Cells Target Cells Tear Drop Cells Ovalocytes Stomatocytes Healy-Bellemeade Bodies Echinocytes Acanthocytes (Spur) Rouleaux RBC Agglutinates Schistocytes Sezary Cell Sodium 126 L Potassium 3.6 Chloride 93 L Carbon Dioxide 23 Anion Gap 10 BUN 26 H Creatinine 1.58 H D Est Cr Clr Drug Dosing 37.6 eGFR 41.81 BUN/Creatinine Ratio 16.5 Glucose 97 Osmolality 265 L Calcium 8.8 Total Bilirubin AST ALT Alkaline Phosphatase Total Protein Albumin Globulin Albumin/Globulin Ratio Lipase Urine Color Urine Appearance Urine pH Ur Specific Gleason Urine Protein Urine Glucose (UA) Urine Ketones Urine Blood Urine Nitrite Urine Bilirubin Urine Urobilinogen Ur Leukocyte Esterase Urine WBC (Auto) Urine RBC (Auto) U Hyaline Cast (Auto) U Epithel Cells (Auto) Urine Bacteria (Auto) Urine Osmolality 648 Ur Random Sodium 10 Urine Comment Blood Parasites ID PG Care Time/CCT Total # of Minutes Spent Total Time Spent with Patient: Total time spent is greater than 50% in coordination of care (as documented) at patient's floor/unit and/or counseling patient: Coding Level of Care Code 17774 INT INP/OBS CARE 75MIN Diagnoses Pancreatic cyst K86.2
[2025-02-09] MEDS: hydroCHLOROthiazide 25 MG TAB PO SCH (10:05)
--- NOTE | 2025-02-09 10:50 | Nephrology Consultation ---
Date of Consultation February 09, 2025 Assessment & Plan (1) Hyponatremia: * Asymptomatic, clinically euthyroid, euvolemic * h/o chronic hyponatremia w/ serum Na 129-133 dating back to 2017 * HCTZ may be a contributing factor. BP is relatively low. Patient is autodiuresing following Patel catheter insertion * Will stop HCTZ * Start NaCl 2g po BID * Recheck BMP, Uosm in am (2) Chronic kidney disease: * Baseline Cr 1.3-1.5 likely on the basis of microvascular disease * Imaging this hospitalization reveals 1.5 cm R upper pole renal lesion, 3.9 cm cystic lesion adjacent to the upper pole of the R kidney, 4 mm L renal calculus. Patient will need renal MRI as outpatient and close urology follow up * Given recent exposure to IV contrast and rising creatinine, will hold Toradol (3) Hypertension: * Admitted w/ relative hypotension * Received 1.5 L NS in EMD * Stop HCTZ due to hyponatremia * Continue irbesartan (4) Urinary retention due to benign prostatic hyperplasia: * PVR 1.3 L * Patel catheter in place draining bloody urine. 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 De La Garza is an 89 year old white male who is seen at the request of the [facility] hospitalist service for evaluation of hyponatremia. 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 Information for the HPI is obtained from direct patient interview and review of the EMR. HPI is summarized as follows: Dr. De La Garza has a documented h/o of chronic hyponatremia. Serum Na has been 129-133 mmol/L dating back to at least 2017. As an outpatient he has been monitored by Dr. Prince. His medical history is also significant for stage G3 CKD w/ baseline Cr 1.3-1.5 w/ EGFR 42-55 cc/min. Outpatient urinalysis has been negative for protein or blood. Dr. De La Garza has HTN managed w/ HCTZ and irbesartan therapy. His medical history also includes hypothyroidism, BPH, GERD and hypercholesterolemia. Dr. De La Garza presented to [facility] yesterday w/ a 3 day h/o lower abdominal discomfort and difficulty voiding. Serum Na was 126 mmol/L, Cr 1.3, CT w/ IV contrast revealed 10 cm multicystic lesion within the head of the pancreas. 1.5 cm R upper pole renal lesion, 3.9 cm cystic lesion adjacent to the upper pole of the R kidney, 4 mm L renal calculus and an enlarged prostate w/ distended bladder. PVR was 1500 cc. Patel catheter was placed with brisk UO. Patient is nonoliguric. Urology has been consulted. Since admission serum Na has remained stable at 126 mmol/L. Toradol was administered due to low abdominal/back pain. Cr has risen to 1.5. Allergies Allergy/AdvReac Type Severity Reaction Status Date / Time No Known Drug Allergies Allergy Verified 01/17/25 10:17 Home Medications Medication Instructions Recorded Confirmed Type loratadine 10 mg tablet 0 mg PO QAM 03/15/19 02/08/25 History atorvastatin 20 mg tablet 20 mg PO HS #90 tabs 04/16/24 02/08/25 Rx levothyroxine 50 mcg tablet 50 mcg PO DAILY #90 tabs 06/21/24 02/08/25 Rx sildenafil (pulm.hypertension) 20 See Rx Instructions PO ONCE PRN 10/25/24 02/08/25 Rx mg tablet sexual activity #30 tabs vitamins A,C,B-diat-tzxstl 4,296 0 cap PO BID 10/25/24 02/08/25 History mcg-226 mg-90 mg capsule (PreserVision AREDS) pantoprazole 20 mg tablet,delayed 20 mg PO QAM #90 tabs 12/24/24 02/08/25 Rx release potassium chloride 10 mEq 10 meq PO DAILY #90 caps 12/24/24 02/08/25 Rx capsule,extended release Centrum Silver Men 1 tab PO DAILY 02/08/25 02/08/25 History Osteo Bi-Flex 2 cap PO QAM 02/08/25 02/08/25 History hydrochlorothiazide 12.5 mg capsule 0 mg PO QAM 02/08/25 02/08/25 History irbesartan 300 mg tablet 0 mg PO QAM 02/08/25 02/08/25 History mecobalamin (vitamin B12) 0 mg PO DAILY PRN Other 02/08/25 02/08/25 History Patient History Medical History Blister of groin with infection GERD (gastroesophageal reflux disease) Subconjunctival hematoma right eye gets injections every 8 weeks Dysphagia History of colon cancer hx of 20 yrs ago > removed during colonoscopy Left SNHL Vertigo Epistaxis resolved Deviated septum no surgery Surgical History History of nasal cauterization H/O melanoma excision History of tonsillectomy and adenoidectomy History of eye surgery cataract left eye History of colonoscopy History of hemorrhoidectomy Family History Father Hearing loss Hypertension Heart disease Myocardial infarction Mother Cancer Sister COPD (chronic obstructive pulmonary disease) Other Melanoma Denies family history of Ovarian cancer Prostate cancer Breast cancer Colorectal cancer Social History Smoking Status: Former smoker Tobacco Type: Cigarettes Age Started Using Tobacco: 17; Age Quit Using Tobacco: 27; packs per day: 1; Second Hand Exposure: No; Do You Dip or Chew Tobacco: No; Hx Alcohol Use: Yes Alcohol type: wine Hx Substance Use: No Preferred Language: Romansh Communication Ability: Effective Visual Impairment: No Limitations Hearing Ability: Normal Cloth Folder Machine Required: No Beliefs That Will Affect Care: None marital status: / Current Living Situation: Alone current occupational status: retired Feels Safe at Home: Yes Childhood Exposure to Second-Hand Smoke: Yes Diet: vegan and other Diet Comment: eats fish, cheese, eggs caffeine: Yes (1 tea 2 coffees daily) Dental Care, Regularly: Yes Physical Activity Frequency: Daily Seatbelt Use: always Sunscreen Use: Yes Do you think of yourself as: straight/heterosexual Gender Identity: Male Assistive Devices: Glasses Review of Systems Constitutional: no fever Eyes: no problem reported Ear, Nose, Mouth, Throat: no problem reported Respiratory: no dyspnea Cardiovascular: no chest pain Gastrointestinal: + abdominal pain and + constipation; no vomiting Genitourinary: + difficulty urinating Integumentary: no rash Neurologic: no problem reported Physical Exam Constitutional: not in distress Eyes: PERRL, conjunctivae normal, anicteric sclerae ENMT: external ear and nose normal, oropharynx normal Neck: trachea midline, no thyromegaly Respiratory: normal respiratory effort, lungs clear to auscultation Cardiovascular: RRR, no murmur, no edema Gastrointestinal (Abdomen): normal bowel sounds, soft, nontender, no hepatosplenomegaly Musculoskeletal: Extremities: no cyanosis and no clubbing Skin: no rashes, warm and dry Neurologic: no focal motor deficits Genitourinary: Patel catheter in place draining bloody urine Results & Data Vital Signs (Past 12 Hours) Vital Signs Temp Pulse Resp BP Pulse Ox O2 Del Method 02/09/25 08:49 107/70 02/09/25 07:22 36.7 C 77 18 126/87 94 Room Air Laboratory Results Laboratory Results WBC 8.15 K/ul (4.8-10.8) 02/09/25 06:46 RBC 4.82 M/uL (4.70-6.10) 02/09/25 06:46 Hgb 15.1 g/dl (14.0-18.0) 02/09/25 06:46 Hct 43.1 % (42.0-52.0) 02/09/25 06:46 MCV 89.4 fL (80.0-100.0) 02/09/25 06:46 MCH 31.3 pg (25.0-34.0) 02/09/25 06:46 MCHC 35.0 g/dL (32.0-36.0) 02/09/25 06:46 RDW Std Deviation 46.6 fL (36.4-46.3) H 02/09/25 06:46 RDW Coeff of Chris 14.5 % (11.5-14.5) 02/09/25 06:46 Plt Count 158 K/uL (130-400) 02/09/25 06:46 MPV 12.3 fL (9.4-12.4) 02/09/25 06:46 Immature Gran % (Auto) 0.3 % 02/08/25 06:59 Neut % (Auto) 76.7 % 02/08/25 06:59 Lymph % (Auto) 10.3 % 02/08/25 06:59 Grand % (Auto) 12.4 % 02/08/25 06:59 Eos % (Auto) 0.1 % 02/08/25 06:59 Baso % (Auto) 0.2 % 02/08/25 06:59 Neut # (Auto) 6.78 K/uL (1.40-6.50) H 02/08/25 06:59 Lymph # (Auto) 0.91 K/uL (1.20-3.40) L 02/08/25 06:59 Grand # (Auto) 1.10 K/uL (0.11-0.59) H 02/08/25 06:59 Eos # (Auto) 0.01 K/uL (0.00-0.50) 02/08/25 06:59 Baso # (Auto) 0.02 K/uL (0.00-0.20) 02/08/25 06:59 Immature Gran # (Auto) 0.03 K/uL (0.01-0.20) 02/08/25 06:59 Absolute Nucleated RBC Cancelled 02/08/25 06:34 Nucleated RBC % (auto) Cancelled 02/08/25 06:34 Neutrophils % (Manual) Cancelled 02/08/25 06:34 Band Neutrophils % Cancelled 02/08/25 06:34 Lymphocytes % (Manual) Cancelled 02/08/25 06:34 Prolymphocyte % Cancelled 02/08/25 06:34 Reactive Lymphs % (Man) Cancelled 02/08/25 06:34 Monocytes % (Manual) Cancelled 02/08/25 06:34 Eosinophils % (Manual) Cancelled 02/08/25 06:34 Basophils % (Manual) Cancelled 02/08/25 06:34 Metamyelocytes % (Man) Cancelled 02/08/25 06:34 Myelocytes % (Man) Cancelled 02/08/25 06:34 Promyelocytes % (Man) Cancelled 02/08/25 06:34 Blast Cells % (Manual) Cancelled 02/08/25 06:34 Plasma Cell % (Manual) Cancelled 02/08/25 06:34 Other Cells % Cancelled 02/08/25 06:34 Nucleated RBC % Cancelled 02/08/25 06:34 Neutrophils # (Manual) Cancelled 02/08/25 06:34 Band Neutrophils # Cancelled 02/08/25 06:34 Total Absolute Neuts Cancelled 02/08/25 06:34 Lymphocytes # (Manual) Cancelled 02/08/25 06:34 Prolymphocyte # Cancelled 02/08/25 06:34 Reactive Lymphs # Cancelled 02/08/25 06:34 Total Abs Lymphocytes Cancelled 02/08/25 06:34 Monocytes # (Manual) Cancelled 02/08/25 06:34 Eosinophils # (Manual) Cancelled 02/08/25 06:34 Basophils # (Manual) Cancelled 02/08/25 06:34 Metamyelocytes # (Man) Cancelled 02/08/25 06:34 Myelocytes # (Manual) Cancelled 02/08/25 06:34 Promyelocytes # (Man) Cancelled 02/08/25 06:34 Blast Cells # (Man) Cancelled 02/08/25 06:34 Plasma Cell # (Manual) Cancelled 02/08/25 06:34 Other Cells # Cancelled 02/08/25 06:34 Nucleated RBCs # (Man) Cancelled 02/08/25 06:34 Hypersegmented Neuts Cancelled 02/08/25 06:34 Hyposegmented Neuts Cancelled 02/08/25 06:34 Hypogranular Neuts Cancelled 02/08/25 06:34 Large Granular Lymphs Cancelled 02/08/25 06:34 # Lrg Granular Lymphs Cancelled 02/08/25 06:34 Hairy Cells Cancelled 02/08/25 06:34 Smudge Cells Cancelled 02/08/25 06:34 Toxic Granulation Cancelled 02/08/25 06:34 Toxic Vacuolation Cancelled 02/08/25 06:34 Dohle Bodies Cancelled 02/08/25 06:34 Lior Rods Cancelled 02/08/25 06:34 Platelet Estimate Cancelled 02/08/25 06:34 Hypogranular Platelets Cancelled 02/08/25 06:34 Giant Platelets Cancelled 02/08/25 06:34 Platelet Satelliting Cancelled 02/08/25 06:34 RBC Morphology Cancelled 02/08/25 06:34 Polychromasia Cancelled 02/08/25 06:34 Hypochromasia Cancelled 02/08/25 06:34 Poikilocytosis Cancelled 02/08/25 06:34 Basophilic Stippling Cancelled 02/08/25 06:34 Anisocytosis Cancelled 02/08/25 06:34 Microcytosis Cancelled 02/08/25 06:34 Macrocytosis Cancelled 02/08/25 06:34 Spherocytes Cancelled 02/08/25 06:34 Pappenheimer Bodies Cancelled 02/08/25 06:34 Sickle Cells Cancelled 02/08/25 06:34 Target Cells Cancelled 02/08/25 06:34 Tear Drop Cells Cancelled 02/08/25 06:34 Ovalocytes Cancelled 02/08/25 06:34 Stomatocytes Cancelled 02/08/25 06:34 Healy-Sargeant Bodies Cancelled 02/08/25 06:34 Echinocytes Cancelled 02/08/25 06:34 Acanthocytes (Spur) Cancelled 02/08/25 06:34 Rouleaux Cancelled 02/08/25 06:34 RBC Agglutinates Cancelled 02/08/25 06:34 Schistocytes Cancelled 02/08/25 06:34 Sezary Cell Cancelled 02/08/25 06:34 Sodium 126 mmol/L (136-145) L 02/09/25 06:46 Potassium 3.6 mmol/L (3.5-5.1) 02/09/25 06:46 Chloride 93 mmol/L (98-107) L 02/09/25 06:46 Carbon Dioxide 23 mmol/L (21-32) 02/09/25 06:46 Anion Gap 10 (3-11) 02/09/25 06:46 BUN 26 mg/dl (6-23) H 02/09/25 06:46 Creatinine 1.58 mg/dl (0.6-1.4) H D 02/09/25 06:46 Est Cr Clr Drug Dosing 37.6 ml/min 02/09/25 06:46 eGFR 41.81 02/09/25 06:46 BUN/Creatinine Ratio 16.5 (10-20) 02/09/25 06:46 Glucose 97 mg/dl (70-99(Fasting)) 02/09/25 06:46 Osmolality 265 mOsm/kg (280-300) L 02/09/25 06:53 Calcium 8.8 mg/dl (8.6-10.3) 02/09/25 06:46 Total Bilirubin 1.6 mg/dl (0.2-1.0) H 02/08/25 06:59 AST 30 U/L (13-39) 02/08/25 06:59 ALT 26 U/L (7-52) 02/08/25 06:59 Alkaline Phosphatase 88 U/L (34-104) 02/08/25 06:59 Total Protein 7.1 gm/dl (6.0-8.3) 02/08/25 06:59 Albumin 4.4 gm/dl (3.4-5.0) 02/08/25 06:59 Globulin 2.7 gm/dl (2.5-4.0) 02/08/25 06:59 Albumin/Globulin Ratio 1.6 (0.9-2) 02/08/25 06:59 Lipase 214 U/L (11-82) H 02/08/25 06:59 Urine Color Yellow 02/08/25 06:34 Urine Appearance Clear (Clear) 02/08/25 06:34 Urine pH 7.5 (4.5-7.5) 02/08/25 06:34 Ur Specific Honeydew 1.011 (1.000-1.030) 02/08/25 06:34 Urine Protein 2+ (Negative) H 02/08/25 06:34 Urine Glucose (UA) Negative (Negative) 02/08/25 06:34 Urine Ketones Trace (Negative) H 02/08/25 06:34 Urine Blood Negative (Negative) 02/08/25 06:34 Urine Nitrite Negative (Negative) 02/08/25 06:34 Urine Bilirubin Negative (Negative) 02/08/25 06:34 Urine Urobilinogen Negative (Negative) 02/08/25 06:34 Ur Leukocyte Esterase Negative (Negative) 02/08/25 06:34 Urine WBC (Auto) 0-5 /hpf (0-5) 02/08/25 06:34 Urine RBC (Auto) 0-2 /hpf (0-2) 02/08/25 06:34 U Hyaline Cast (Auto) 0-2 /lpf (0-2) 02/08/25 06:34 U Epithel Cells (Auto) 0-2 /hpf (0-2) 02/08/25 06:34 Urine Bacteria (Auto) None Seen (None Seen) 02/08/25 06:34 Urine Osmolality 648 mOsm/kg (500-800) 02/09/25 08:25 Ur Random Sodium 10 mmol/L 02/09/25 08:25 Urine Comment 02/08/25 06:34 Blood Parasites ID Cancelled 02/08/25 06:34 Impressions Chest X-Ray 02/08/25 06:23 EXAM: XR chest 1V portable CLINICAL HISTORY: abd pain TECHNIQUE: An X-ray image of the chest is obtained in 1 AP projection. COMPARISON: No prior studies are available for comparison. FINDINGS: Pulmonary Parenchyma: No evidence of consolidation, collapse, or focal opacities. No pulmonary nodules are identified. No evidence of pleural effusion or pleural thickening. Heart and Mediastinum: Heart size and shape are normal. No mediastinal widening or masses. No hilar or mediastinal lymphadenopathy. Bony Thorax: Bony thorax appears intact without fractures or deformities. Soft Tissues: Soft tissues overlying the chest wall are unremarkable. IMPRESSION: No acute cardiopulmonary abnormalities are identified. Electronically signed by Deshaun Kate 02-08-2025 08:04 AM Abdomen/Pelvis CT 02/08/25 07:16 CT SCAN OF THE ABDOMEN AND PELVIS WITH IV CONTRAST CLINICAL HISTORY: Abdominal pain, constipation and nausea. COMPARISON STUDY: None. TECHNIQUE: Following the IV administration of 94 cc of Optiray 320, CT scan of the abdomen and pelvis is performed from the lung bases to the proximal femora. Images are reviewed in the axial, sagittal, and coronal planes. IV contrast was administered without complication. A dose lowering technique was utilized adhering to the principles of ALARA. FINDINGS: Visualized portions of the lung bases are unremarkable. No pneumatosis, free air or portal venous gas is present. Subcentimeter lateral segment hepatic lesion is likely benign. There is no biliary or pancreatic ductal dilatation patient. Subcentimeter hypodense splenic lesion is likely benign. Note is made of a lobulated multicystic lesion within the pancreatic head which measures 10 x 8.8 x 7.1 cm. This contains numerous thin septations. A small amount of adjacent fluid is noted. This lesion causes severe narrowing of the proximal main portal vein. There is also mild narrowing of the superior mesenteric vein. The findings favor extrinsic compression although vascular invasion could appear similar. This lesion also abuts and displaces the inferior vena cava. A 4 mm left lower pole renal calculus is present. There are no ureteral calculi and there is no hydronephrosis. The prostate is enlarged, measuring 7.5 cm in transverse diameter. The bladder is moderately distended. Bladder wall thickening is likely chronic. Low-attenuation right renal lesions favor cysts. Note is made of a 3.9 cm cystic lesion along anterior aspect of the upper pole of the right kidney. In addition, there is a 1.5 cm lesion arising from the upper pole the right kidney on image 90 which measures above water attenuation. There is a 3.2 cm infrarenal abdominal aortic aneurysm. There is no evidence for a bowel obstruction. Note is made of colonic diverticulosis with evidence for acute diverticulitis. There is no lymphadenopathy. There are no fractures or suspicious lesions within visualized skeletal structures. The lumbar spine CT will be reported separately. IMPRESSION: 1. 10 x 8.8 x 7.1 cm lobulated multicystic lesion within the pancreatic head which contains numerous thin septations. A benign etiology such as serous cystad enoma is favored. Additional less likely differential considerations include mucinous cystic neoplasm of the pancreas and pancreatic pseudocyst. This results in compression/narrowing of several adjacent vessels, including severe narrowing of the main portal vein. Small amount of adjacent fluid could indicate superimposed pancreatitis or cyst rupture. GI consultation is recommended for consideration for EUS. 2. No bowel obstruction. No bowel wall thickening. Colonic diverticulosis without evidence for acute diverticulitis. 3. 1.5 cm right upper pole renal lesion which could represent a small solid renal lesion or proteinaceous cyst. Nonemergent renal protocol MRI is recommended. 3.9 cm cystic lesion adjacent to the upper pole of the right kidney. This is indeterminate although favors an exophytic renal cyst and can be assessed on MRI. 4. Enlarged prostate with distended bladder. Bladder wall thickening, likely chronic. 5. 3.2 cm infrarenal abdominal aortic aneurysm. 6. 4 mm left renal calculus. ACT 112: Negative or not required by law. Electronically signed by: Dante Denis M.D. 02/08/2025 8:[address] 02/08/25 07:[address] WITH CONTRAST CLINICAL HISTORY: Low back pain. COMPARISON STUDY: No previous studies for comparison. TECHNIQUE: Axial images of the lumbar spine were obtained following intravenous injection of 94 cc of Optiray 320 IV. Sagittal and coronal reformats were viewed. A dose lowering technique was utilized adhering to the principles of ALARA. FINDINGS: Please note that the abdomen and pelvis CT will be reported separately. For purposes of numbering on this exam, the L5-S1 disc space is assigned to axial image 396 of 508. There is mild leftward curvature of the lumbar spine. Vertebral body heights are maintained. There are no fractures. 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 There are no suspicious osseous lesions. A 4 cm lucent lesion with thickened trabecula within the L3 vertebral body represents a hemangioma. There is moderate to space narrowing with vacuum disc phenomenon at L5-S1. There is moderate multilevel facet arthrosis. The central canal and neural foramen are suboptimally assessed given CT technique. There is no evidence for severe central canal stenosis. Mild to moderate multilevel neural foraminal stenosis is present. IMPRESSION: 1. No lumbar spine fractures. 2. Moderate multilevel degenerative changes within the lumbar spine. No severe central canal and neural foraminal stenosis by CT. ACT 112: Negative or not required by law. Electronically signed by: Dante Denis M.D. 02/08/2025 8:41 AM PG Care Time/CCT Total # of Minutes Spent Total Time Spent with Patient: Total time spent is greater than 50% in coordination of care (as documented) at patient's floor/unit and/or counseling patient: Coding Level of Care Code 40173 IN/OBS CONSULT LVL 5,80M Diagnoses Hyponatremia E87.1 Chronic kidney disease N18.9 Hypertension I10 Urinary retention due to benign prostatic hyperplasia N40.1; R33.8 Pancreatic lesion K86.9
[2025-02-09] MEDS: SODIUM CHLORIDE 1 GM TABLET PO SCH (11:36)
[2025-02-09] MEDS: MULTIVITAMIN TAB PO SCH (11:37)
[2025-02-09] MEDS: LOSARTAN POTASSIUM 50 MG TAB PO SCH (11:40)
[2025-02-09] MEDS: POTASSIUM CHLORIDE 10 MEQ TABCR PO SCH (11:41)
[2025-02-09] MEDS: SODIUM CHLORIDE 0.9% 500 ML IV SCH ×2 (11:59→18:28)
--- NOTE | 2025-02-09 12:05 | Hospitalist Progress Note ---
Date of Service February 09, 2025 Assessment & Plan (1) Pancreatic lesion: Plan: -CT showing 10 x 8.8 x 7.1 cm lobulated multicystic lesion within the pancreatic head which contains numerous thin septations. 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 -may be contributing to patient abdominal pain and constipation -recommending EUS with fluid analysis (2) Constipation: Plan: -mirlax -Milk of magnesia -adding magnesium citrate -constipation may be related to pancreatic cystadenoma -consider transfer to tertiary care center for EUS if symptoms do not resolve with laxatives (3) Urinary retention due to benign prostatic hyperplasia: Plan: -Patel placed -improvement in symptoms -start flomax -Urology consult appreciated -2nd enlarged prostate -con't Patel, out patient voiding trial -added finasteride (4) Hyponatremia: Plan: -NS IVF started -f/u BMP in am -nephrology consult appreciated -h/o of chronic hyponatremia with Na+ 129-133 -HCTZ stopped -NaCL 2g PO BID -f/u uosm (5) Hypercholesterolemia: Plan: -con't zocor (6) Hypertension: Plan: -HCTZ -Irbesartan Admission and Anticipated Discharge Date Admission Date: February 08, 2025 Subjective Pt having nausea and constipation this am. Patel was noted to have blood tinged urine output. Review of Systems Review of Systems: Abdominal pain CONST: Negative for fever, body aches and chills. HENT: Negative for neck pain/stiffness, headache, congestion, sore throat, swelling. EYES: Negative for discharge/pain or vision changes. RESP: Negative for cough/hemoptysis and shortness of breath. CV: Negative chest pain, difficulty breathing, palpitations. ABD: Negative pain, nausea, vomiting. : Negative increase frequency, dysuria, blood in urine or stool. MUSC: Negative for muscle aches, edema. SKIN: Negative rash, lesions/sores. NEURO: Negative headache, dizziness, weakness. Physical Exam Physical Exam: GENERAL APPEARANCE NAD, activity normal for age, well developed/ well nourished, no cyanosis, pallor, or diaphoresis. EYES lids/conjunctiva normal. EARS/NOSE/THROAT Mucous membranes moist, nares normal, lips/teeth normal uvula midline without oral pharyngeal erythema, exudate or swelling TMs normal bilaterally. No lymphangitis/lymphedema. HEAD/NECK normocephalic atraumatic, no facial trauma, neck is supple. RESPIRATORY respiratory effort normal, speaks in full sentences, no tripod position, no accessory muscle use. Lungs clear to auscultation without rhonchi, wheezes, rales CARDIAC Regular rate and rhythm, no edema. ABDOMINAL Soft, ND/NT. No evidence of fluid wave. No pulsatile masses on exam, rebound tenderness, Albright sign or pain over Mcburney's point. MUSCLES/EXTREMITIES No abnormal range of motion, no swelling. SKIN Warm, pink and dry. No rashes, dermatoses, petechiae or lesions. NEUROLOGICAL Speech is clear and appropriate. Normal level of consciousness. Gait and coordination are normal. 5/5 strength in all extremities. PSYCH Normal mood and affect. Judgement/competence is appropriate Results & Data Results & Data Vital Signs (Past 12 Hours) Vital Signs Temp Pulse Resp BP Pulse Ox O2 Del Method 02/09/25 08:49 107/70 02/09/25 07:22 36.7 C 77 18 126/87 94 Room Air PG Care Time/CCT Total # of Minutes Spent Total Time Spent with Patient: Total time spent is greater than 50% in coordination of care (as documented) at patient's floor/unit and/or counseling patient: Coding Level of Care Code 94822 SUB INP/OBS CARE 2/35MIN Diagnoses Pancreatic lesion K86.9 Constipation K59.00 Urinary retention due to benign prostatic hyperplasia N40.1; R33.8 Hyponatremia E87.1 Hypercholesterolemia E78.00 Hypertension I10
[2025-02-09] MEDS: MAGNESIUM CITRATE 296 ML/BTL PO STA (12:15)
[2025-02-09] MEDS: PROCHLORPERAZINE 5 MG in SYRINGE 4 ML IV ONE (12:19)
--- NOTE | 2025-02-09 13:11 | Electrocardiogram Report ---
Test Reason : Blood Pressure : */* mmHG Vent. Rate : 58 BPM Atrial Rate : 58 BPM P-R Int : 192 ms QRS Dur : 110 ms QT Int : 486 ms P-R-T Axes : 37 -7 26 degrees QTcB Int : 477 ms Sinus bradycardia Moderate voltage criteria for LVH, may be normal variant ( R in aVL , Enoc product ) Borderline ECG No previous ECGs available Confirmed by Madhav Griffin ([id number]) on 02/09/2025 1:10:34 PM Referred By: REFERRED SELF Confirmed By: Madhav Griffin
[2025-02-09] MEDS: FINASTERIDE 5 MG TAB PO SCH (16:26)
[2025-02-10 07:32] LABS: Hematocrit (blood only) 40.7 % (42.0-52.0); Hemoglobin 14.4 g/dl (14.0-18.0); Mean Corpuscular Hemoglobin 31.9 pg (25.0-34.0); Mean Corpuscular Volume 90.2 fL (80.0-100.0); Platelet Count 148 K/uL (130-400); RDW Standard Deviation 49.0 fL (36.4-46.3); Red Blood Count 4.51 M/uL (4.70-6.10); White Blood Count 8.21 K/ul (4.8-10.8)
[2025-02-10 07:54] LABS: Anion Gap 5.0 (3-11); Blood Urea Nitrogen 28.0 mg/dl (6-23); Calcium 8.4 mg/dl (8.6-10.3); Carbon Dioxide 29.0 mmol/L (21-32); Chloride 97.0 mmol/L (98-107); Creatinine Clr Calc Pharmacy 40.9 ml/min; Glucose 91.0 mg/dl (70-99(Fasting)); Potassium 3.6 mmol/L (3.5-5.1); Sodium 131.0 mmol/L (136-145)
[2025-02-10 08:09] LABS: Thyroid Stimulating Hormone 2.149 uIu/ml (0.300-4.500)
[2025-02-10 08:33] VITALS: BP 142/80; PULSE 73; TEMP 99.9; O2SAT 91
--- NOTE | 2025-02-10 09:13 | Nephrology Progress Note ---
Date of Service February 10, 2025 Assessment & Plan (1) Hyponatremia: Plan: * Asymptomatic, clinically euthyroid, euvolemic * h/o chronic hyponatremia w/ serum Na 129-133 dating back to 2017 * HCTZ may be a contributing factor. BP is relatively low. Patient is autodiu resing following Patel catheter insertion * HCTZ has been stopped * Continue NaCl 2g po BID * Start Furosemide 20 mg qAM * Awaiting Uosm * Recheck BMP, Uosm in am (2) Chronic kidney disease: Plan: * Baseline Cr 1.3-1.5 likely on the basis of microvascular disease * Imaging this hospitalization reveals 1.5 cm R upper pole renal lesion, 3.9 cm cystic lesion adjacent to the upper pole of the R kidney, 4 mm L renal calculus. Patient will need renal MRI as outpatient and close urology follow up * Continue to hold Toradol (3) Hypertension: Plan: * Admitted w/ relative hypotension * Received 1.5 L NS in EMD * Stop HCTZ due to hyponatremia * BP now improve * Continue irbesartan * Start furosemide 20 mg qAM (4) Urinary retention due to benign prostatic hyperplasia: Plan: * PVR 1.3 L * Patel catheter in place draining bloody urine. Patient is nonoliguric * Urology has been consulted and has started tamsulosin and finasteride (5) Pancreatic lesion: Plan: * 10 cm multicystic lesion within the head of the pancreas * Gastroenterology has been consulted and recommends EUS at tertiary care center as outpatient Admission and Anticipated Discharge Date Admission Date: February 08, 2025 Subjective Mr. De La Garza was evaluated in his hospital room this morning. He reports one BM yesterday but still notes that his abdomen is distended and mildly tender. He tolerated NaCl poorly due to GI upset but is willing to try again today with food. Review of Systems Constitutional: no fever Eyes: no problem reported Ear, Nose, Mouth, Throat: no problem reported Respiratory: no dyspnea Cardiovascular: no chest pain Gastrointestinal: + abdominal pain and + constipation; no vomiting Genitourinary: + difficulty urinating Integumentary: no rash Neurologic: no problem reported Physical Exam Constitutional: not in distress Eyes: PERRL, conjunctivae normal, anicteric sclerae ENMT: external ear and nose normal, oropharynx normal Neck: trachea midline, no thyromegaly Respiratory: normal respiratory effort, lungs clear to auscultation Cardiovascular: RRR, no murmur, no edema Gastrointestinal (Abdomen): normal bowel sounds, soft, nontender, no hepatosplenomegaly Musculoskeletal: Extremities: no cyanosis and no clubbing Skin: no rashes, warm and dry Neurologic: no focal motor deficits Results & Data Vital Signs (Past 12 Hours) Vital Signs Temp Pulse Resp BP Pulse Ox O2 Del Method 02/10/25 08:32 37.7 C H 73 18 142/80 H 91 Room Air Laboratory Results Laboratory Results - last 24 hr 02/09/25 02/10/25 02/10/25 Unknown 07:18 08:44 WBC 8.21 RBC 4.51 L Hgb 14.4 Hct 40.7 L MCV 90.2 MCH 31.9 MCHC 35.4 RDW Std Deviation 49.0 H RDW Coeff of Chris 14.9 H Plt Count 148 MPV 11.4 Sodium 131 L Potassium 3.6 Chloride 97 L Carbon Dioxide 29 Anion Gap 5 BUN 28 H Creatinine 1.45 H Est Cr Clr Drug Dosing 40.9 eGFR 46.35 BUN/Creatinine Ratio 19.3 Glucose 91 Osmolality Pending Calcium 8.4 L TSH 2.149 Urine Osmolality 688 Ur Random Creatinine 181.2 Ur Random Microalbumin 522.7 Microalb/Creat Ratio 288.4 H PG Care Time/CCT Total # of Minutes Spent Total Time Spent with Patient: Total time spent is greater than 50% in coordination of care (as documented) at patient's floor/unit and/or counseling patient: Coding Level of Care Code 95864 SUB INP/OBS CARE 3/50MIN Diagnoses Hyponatremia E87.1 Chronic kidney disease N18.9 Hypertension I10 Urinary retention due to benign prostatic hyperplasia N40.1; R33.8 Pancreatic lesion K86.9
[2025-02-10] MEDS: FUROSEMIDE 20 MG TAB PO SCH (09:32)
--- NOTE | 2025-02-10 10:45 | Gastroenterology Progress Note ---
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 Will need referral for EUS. Patient prefers [facility]. Will help facilitate this referral. Admission and Anticipated Discharge Date Admission Date: February 08, 2025 Supervising Physician Co-Signing Physician Notes I saw and examined this patient with our nurse practitioner and agree with her assessment and plan. Arrangements being made for follow-up with tertiary care center for EUS and cyst aspiration for definitive diagnosis. Subjective Patient is an 89 yo male being followed by GI for a pancreatic lesion. He notes that he ate breakfast this AM. He has some upper abdominal discomfort but is not sure if it's from breakfast or due to taking laxatives. He denies other new complaints. He prefers [facility] referral for his EUS. CT abd/pelvis: 10 x 8.8 x 7.1 cm lobulated multicystic lesion within the pancreatic head which contains numerous thin septations. A benign etiology such as serous cystadenoma is favored. Additional less likely differential considerations include mucinous cystic neoplasm of the pancreas and pancreatic pseudocyst. This results in compression/narrowing of several adjacent vessels, including severe narrowing of the main portal vein. Small amount of adjacent fluid could indicate superimposed pancreatitis or cyst rupture. GI consultation is recommended for consideration for EUS. Review of Systems Gastrointestinal: + abdominal pain (mild discomfort) Physical Exam Constitutional: well developed Respiratory: normal respiratory effort Gastrointestinal (Abdomen): normal bowel sounds, soft, nontender, no hepatosplenomegaly Psychiatric: Orientation: alert and oriented x 3 Results & Data Results & Data Vital Signs (Past 12 Hours) Vital Signs Temp Pulse Resp BP Pulse Ox O2 Del Method 02/10/25 08:32 37.7 C H 73 18 142/80 H 91 Room Air PG Care Time/CCT Total # of Minutes Spent Total Time Spent with Patient: Total time spent is greater than 50% in coordination of care (as documented) at patient's floor/unit and/or counseling patient: Coding Level of Care Code 38697 SUB INP/OBS CARE 2/35MIN Diagnoses Pancreatic cyst K86.2
--- NOTE | 2025-02-10 12:53 | Discharge Summary ---
Discharge Summary Date of Service February 10, 2025 Principal Dx & Hospital Course #1 = Principal Diagnosis (1) Pancreatic lesion: -CT showing 10 x 8.8 x 7.1 cm lobulated multicystic lesion within the pancreatic head which contains numerous thin septations. 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 -may be contributing to patient abdominal pain and constipation -recommending EUS with fluid analysis. This procedure will need to be done at a tertiary care center (2) Constipation: -mirlax -Milk of magnesia - Consider adding magnesium citrate -constipation may be related to pancreatic cystadenoma - PCP will arrange EUS at a tertiary care center (3) Urinary retention due to benign prostatic hyperplasia: -Patel catheter will remain in place at discharge. -improvement in symptoms - flomax and Proscar have been started -Urology consult appreciated -2nd enlarged prostate (4) Hyponatremia: Improved with fluid restriction and sodium chloride replacement. He was instructed to drink fluids only while eating and if he feels thirsty. Nephrology consultation appreciated. (5) Hypercholesterolemia: Stable.Con't zocor (6) Hypertension: Stable. Continue ARB. Diuretic has been stopped. Plan Home today, February 10, with Patel catheter in place. He will follow-up with urology for Patel catheter removal and subsequent trial of voiding. He will see his PCP as soon as possible for referral to a tertiary care center for completion of EUS study of the pancreatic lesion. Admission HPI Per Admitting Provider Pt is an 89 y/o male with pmh of HTN, HLD, who presents with 3 day of abdominal bloating and pain. Pt states his last BM was 3 days ago and he also has been having fullness in his bladder. In the ER his labs showed hyponatremia with Na+ 126, lipase 214, otherwise unremarkable. CT a/p shows multicystic lesion within the pancreatic head, enlarged prostate with distended bladder. Pt had Patel sho juan and felt relief in symptoms. Pt is being admitted for further evaluation of urinary retention and work up of pancreatic cyst. 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 Gastroenterology has recommended an endoscopic ultrasound evaluation of the pancreatic mass. This test will need to be arranged by your primary care provider and completed at a tertiary care center such as [facility] in [place]. Drink fluids only when feeling thirsty or while eating. Pending Studies at Discharge: No Stand-Alone Forms: [facility] [employer], Smoking Cessation Medications and DC Order Prescriptions: New polyethylene glycol 3350 [Miralax] 17 gram Powder In Packet 17 g PO DAILY PRN (Reason: constipation) Qty: 14 0RF tamsulosin 0.4 mg Capsule 0.4 mg PO HS Qty: 30 0RF finasteride 5 mg Tablet 5 mg PO QAM Qty: 30 0RF sodium chloride 1,000 mg Tablet,Soluble 2,000 mg PO BID Qty: 90 0RF Continued atorvastatin 20 mg tablet 20 mg PO HS Qty: 90 3RF levothyroxine 50 mcg tablet 50 mcg PO DAILY Qty: 90 3RF potassium chloride 10 mEq capsule, extended release 10 meq PO DAILY Qty: 90 3RF pantoprazole 20 mg tablet,delayed release (DR/EC) 20 mg PO QAM Qty: 90 3RF loratadine 10 mg tablet 0 mg PO QAM Patient Comments: 02/08- otc unable to verify PreserVision AREDS 4,296 mcg-226 mg-90 mg capsule 0 cap PO BID Patient Comments: 02/08- otc unable to verify sildenafil (pulm.hypertension) 20 mg tablet See Rx Instructions PO ONCE PRN (Reason: sexual activity) Qty: 30 4RF Rx Instructions: Take 1-5 tabs PRN 1 hour prior to need. No more than 5 tabs in 24 hours. hydrochlorothiazide 12.5 mg capsule 0 mg PO QAM Patient Comments: 02/08- last filled 11/05/24 90 day supply irbesartan 300 mg tablet 0 mg PO QAM Patient Comments: 02/08-last filled 11/11/24 90 day supply #90 Centrum Silver Men 1 tab PO DAILY Patient Comments: 02/08- otc unable to verify Osteo Bi-Flex 2 cap PO QAM Patient Comments: 02/08- otc unable to verify. original: 2 caps po qam mecobalamin (vitamin B12) 0 mg PO DAILY PRN (Reason: Other) Patient Comments: 02/08- otc unable to verify Discharge Orders: Discharge Order (Routine); Ordered 02/10/25 Ordered By: Sacha Campbell Admission Data Admit Date/Time: 02/08/25 11:06 Attending Provider: Sacha Campbell Admit Provider: Wm Martin Primary Care Provider: Spencer Escalera V. Other Providers: Wm Martin; Ruy Marie I; Salo Ashley; Vignesh Landon Hospital Stay Data Consultations 02/08/25 09:24 ED Decision to Admit Stat 02/08/25 11:11 Consult Gastroenterology Routine 02/08/25 11:35 Consult Urology Routine 02/09/25 07:56 Consult Nephrology Routine Diagnostic Imagining Performed 02/08/25 07:16 CT abd pelvis IV con only Stat CT lumbar spine w con Stat Pending Results Patient Have Any Pending Studies at Discharge: No Discharge Instructions Given to Patient (Per Discharging Provider) Bladder catheter remains in place until follow-up with urologist. Gastroenterology has recommended an endoscopic ultrasound evaluation of the pancreatic mass. This test will need to be arranged by your primary care provider and completed at a tertiary care center such as [facility] in [place]. Drink fluids only when feeling thirsty or while eating. Total Time Total Time Spent Total Time Spent (In Minutes): 50-minute Coding Level of Care Code 71832 INP/OBS DISCH >30 MIN Diagnoses Pancreatic lesion K86.9 Constipation K59.00 Urinary retention due to benign prostatic hyperplasia N40.1; R33.8 Hyponatremia E87.1 Hypercholesterolemia E78.00 Hypertension I10
== END 2025-02-10 16:51 | disposition home health service (06) | DRG 438 ==
LOC: ED 05:53 → 3N 11:06 → SUATTDRO 11:06 → 3N 14:55